=== PATIENT | male | born 1950 | race Caucasian/White ===

== ENCOUNTER 2016-11-02 14:54 | Inpatient (IN) | payer OTHER ==
[~2016-11-02] VITALS: Ht 182.9 cm; Wt 113.4 kg
[~2016-11-02 14:54] MED LIST: ASPIRIN325 M2 PO; DAILY MULTIPLE1 EACH PO; ELIQUIS5 M1 PO; FLOMAX0.4 M1 PO; METOPROLOL TART25 M1 PO; SIMVASTATIN40 M1 PO; VALSARTAN-HCTZ1 EAC3 PO; VICODIN 5-3001 EACH PO; VITAMIN B COMP1 EACH PO; VITAMIN B-121000 MC3 PO; VITAMIN D1000 UNIT PO
--- NOTE | 2016-11-02 15:00 | NUR ---
PT C/O FEVER SINCE MONDAY. STATES IT BROKE YESTERDAY, AND NOW IS 102.5. STATES SHIRT WAS SOAKED THROUGH WITH SWEAT. PT NOTED WITH SHAKING CHILLS. STATES HE FEELS TIRED AND FEELS TIGHTNESS WHEN HE BREATHS.
--- NOTE | 2016-11-02 15:14 | ED DYSPNEA/ASTHMA COMPLAINT ---
History of Present Illness General Chief Complaint: Fever Stated Complaint: FEVER/SOB Source: patient, family, old records Exam Limitations: no limitations Vital Signs & Intake/Output Vital Signs & Intake/Output Vital Signs Date Time Temp Pulse Resp B/P B/P Pulse O2 O2 Flow FiO2 Mean Ox Delivery Rate 11/03 2027 97.3 64 18 130/65 96 11/02 1812 100.4 11/02 1745 101.6 11/02 1718 75 18 137/64 96 11/02 1600 97 Room Air 11/02 1520 95 11/02 1458 102.5 100 20 152/85 94 Room Air Allergies Coded Allergies: lisinopril (COUGHING 11/12/15) Reconcile Medications Apixaban (Eliquis) 5 MG TABLET 1 TAB PO BID BLOOD THINNER (Reported) Cholecalciferol (Vitamin D3) (Vitamin D) 1,000 UNIT TABLET 1 TAB PO DAILY SUPPLEMENT (Reported) Cyanocobalamin (Vitamin B-12) 1,000 MCG TABLET 1 TAB PO DAILY SUPPLEMENT ( Reported) Metoprolol Tartrate 25 MG TABLET 0.5 TAB PO BID HBP (Reported) Multivitamin (Daily Multiple Vitamin) 1 EACH TABLET 1 TAB PO DAILY SUPPLEMENT (Reported) Simvastatin (Simvastatin*) 40 MG TABLET 1 TAB PO QPM CHOLESTEROL (Reported) Valsartan/Hydrochlorothiazide (Valsartan-Hctz 320-25 MG Tab) 1 EACH TABLET 1 TAB PO DAILY HIGH BLOOD PRESSURE (Reported) Vitamin B Complex 1 EACH CAPSULE 1 CAP PO DAILY SUPPLEMENT (Reported) Triage Note: PT C/O FEVER SINCE MONDAY. STATES IT BROKE YESTERDAY, AND NOW IS 102.5. STATES SHIRT WAS SOAKED THROUGH WITH SWEAT. PT NOTED WITH SHAKING CHILLS. STATES HE FEELS TIRED AND FEELS TIGHTNESS WHEN HE BREATHS. Triage Nurses Notes Reviewed? yes Onset: Abrupt Duration: day(s): (3), constant Timing: recent history Severity: moderate Prior Episodes/Possible Cause: no prior episodes Associated Symptoms: cough, fever HPI: 66-year-old male presents to ER for evaluation complaining of a 3 day history of progressively worsening fever shortness of breath diaphoresis. He states the fevers improved with Tylenol however come back he reports that today began to have a nonproductive cough. No sputum production or hemoptysis no doll pain nausea vomiting diarrhea. The patient has been camping in [place] and came home due to the symptoms. No sick contacts or recent antibiotic use. No nausea vomiting or diarrhea. No modifying factors or associated symptoms otherwise. The patient denies any chest pain palpitations dizziness lightheadedness. He does not smoke. The patient was admitted 1 year ago secondary to pericarditis. Symptoms are not worse with laying flat or sitting upright. No legSWELLING, no bodyaches, no recent tick bite (JASON RICHARDSON) Past History Travel History Traveled to [facility] past 21 day No Medical History Any Pertinent Medical History? see below for history Neurological: NONE EENT: NONE Cardiovascular: AFIB, hypertension, hyperlipidemia, PERICARDITIS Respiratory: NONE Gastrointestinal: NONE Hepatic: NONE Renal: NONE Musculoskeletal: NONE Psychiatric: NONE Endocrine: NONE Blood Disorders: NONE Cancer(s): NONE SALES ADMINISTRATION MANAGER/Reproductive: NONE History of MRSA: No History of VRE: No History of CDIFF: No Surgical History Surgical History: non-contributory Psychosocial History Who do you live with Spouse Services at Home None What is your primary language Turkmen Tobacco Use: Never used Family History Family History, If Any: Relation not specified for: *No pertinent family history Hx Contributory? No (JASON RICHARDSON) Review of Systems Review of Systems Constitutional: Reports: see HPI. Comments Review of systems: See HPI, All other systems negative. Constitutional, no chills no fever, no malaise HEENT: No visual changes no sore throat no congestion Cardiovascular: No chest pain , no palpitation Skin: no rashes, no change in skin Respiratory: No dyspnea no cough no sputum GI: No nausea no vomiting, no diarrhea, : No dysuria Muscle skeletal: No joint pain, no back pain, no neck pain, Neurologic: No numbness no headache Psych: No stress Heme/endocrine: No bruising Immunology: No lymphadenopathy (JASON RICHARDSON) Physical Exam Physical Exam General Appearance: well developed/nourished, alert, awake Respiratory: normal breath sounds, chest non-tender Comments: Well-developed well-nourished person in no acute distress HEENT: Normal EENT exam; PERRL, EOMI,HEAD is atraumatic. moist mucous membranes. Neck: Supple, no lymphadenopathy, normal range of motion without pain or tenderness Back: Nontender, no CVA tenderness. Full range of motion Cardiovascular: Regular rate and rhythms no murmurs rubs or gallops, normal JVP Respiratory: Chest nontender.There were no bony deformities, no asymmetry. No respiratory distress. Patient speaking in full complete sentences. Breath sounds clear to auscultation bilaterally: NO W/R/R Abdomen: Soft, nontender nondistended, no appreciable organomegaly. Normal bowel sounds. No rebound/guarding, No appreciable enlargement of the abdominal aorta, No ascites. Extremity: No edema, full range of motion of extremities, Neuro: Alert oriented x3, motor sensory normal, There were no obvious focal neurologic abnormalities. Skin: Diaphoretic No appreciable rash on exposed skin, skin is warm , no jaundice Psych: Mood and affect is normal, memory and judgment is normal. Core Measures ACS in differential dx? Yes Severe Sepsis Present: No Septic Shock Present: No Pneumonia Severity Index PSI Screen: PSI Screen: Response Value Temp < 95F or > 103.8F yes 15 Pulse > 124 yes 10 Total 25 Subtotal (Add Patient's Age): 89 (PATTIE GILL,JASON) Progress Differential Diagnosis: AMI, bronchitis, CHF, COPD, pneumonia, pneumothorax, unstable angina, TICK BORN ILLNESSS, CHOLELITHIASIS, CHOLECYSITIS, CHOLANGITIS, MALIGNANCY, PERICARDITISI, MYOCARDITIS Plan of Care: Orders Procedure Date/time Status Heart Healthy Diet 11/03 B Active CBC WITHOUT DIFFERENTIAL 11/03 599 Active BASIC ELECTROLYTES PLUS BUN&CR 11/03 599 Active TRC EVALUATION (GEN) 11/02 2009 Active Pathway - chart 11/02 2009 Active House Staff 11/02 2009 Active Patient Data 11/02 2009 Active Code Status 11/02 2009 Active Admit to inpatient 11/02 1948 Active Patient Data 11/02 1948 Active Code Status 11/02 1948 Complete Add-on Test (ER Only) 11/02 1917 Active LACTIC ACID 11/02 1805 Complete Intake & Output 11/02 1559 Active LYME TITRE 11/02 1514 Active Telemetry/Crepe Sole Wire Brusher 11/02 1505 Active BLOOD CULTURE 11/02 1505 Active TROPONIN LEVEL 11/02 1505 Complete PARTIAL THROMBOPLASTIN TIME 11/02 1505 Complete LACTIC ACID 11/02 1505 Complete COMPREHENSIVE METABOLIC PANEL 11/02 1505 Complete CBC WITHOUT DIFFERENTIAL 11/02 1505 Complete EKG 11/02 1505 Active VTE Mechanical Prophylaxis 11/02 UNK Active Activity/Ambulation 11/02 UNK Active Current Medications Sig/Luba Start time Last Medication Dose Stop Time Status Admin Ceftriaxone Sodium 1,000 MG DAILY 11/03 999 UNVr (Rocephin) Enoxaparin Sodium 40 MG DAILY 11/03 999 UNVr (Lovenox) Acetaminophen 650 MG Q6P PRN 11/02 2014 UNVr (Tylenol) Azithromycin 500 MG Q24H 11/02 2014 UNVr (Zithromax) Sodium Chloride 250 ML (Normal Saline 0.9%) Laboratory Tests 11/02/16 1814: Lactic Acid 0.8 11/02/16 1538: Anion Gap 13, Estimated GFR > 60, BUN/Creatinine Ratio 17.8, Glucose 190 H, Lactic Acid 2.1, Calcium 9.1, Total Bilirubin 1.5 H, AST 199 H, ALT 225 H, Alkaline Phosphatase 228 H, Troponin I 0.02, Total Protein 6.8, Albumin 3.9, Globulin 2.9, Albumin/Globulin Ratio 1.3, APTT 37, CBC w Diff NO MAN DIFF REQ, RBC 4.51 L, MCV 88.0, MCH 29.7, RDW 13.0, MPV 7.4, Gran % 85.3 H, Lymphocytes % 6.0 L, Monocytes % 8.6, Eosinophils % 0.1, Basophils % 0 L, Absolute Granulocytes 6.4, Absolute Lymphocytes 0.5 L, Absolute Monocytes 0.6, Absolute Eosinophils 0, Absolute Basophils 0, PUBS MCHC 33.7, Lyme Disease Antibody Pending Microbiology 11/02 1710 BLOOD: Blood Culture - RECD 11/02 1537 BLOOD: Blood Culture - RECD labs ordered, toradol 30mg iv, duoneb, cxr ordered case d/w dr ruiz who eval pt and agrees with plan pna severity index 93 points Risk Class IV, 8.2-9.3% mortality. Hospitalization recommended based on risk. 1830 repeat temp 99.0, repeat lactic is pending patient feeling improved however short of breath and spray patient however given x-ray lab work I believe premature discharge at the metacarpal which is in agreement with, Rocephin, azithromycin ordered call was placed to the patient's primary care physician CASE d/w dr francois will admit to [facility] (JASON RICHARDSON) Diagnostic Imaging: Viewed by Me: Radiology Read, CT Scan. Discussed w/RAD: Radiology Read, CT Scan. Radiology Impression: PATIENT: DORINDA HOWARD PRESENT AGE: 66 PATIENT ACCOUNT NO: [id number] : 48 LOCATION: ER ORDERING PHYSICIAN: JASON GILL SERVICE DATE: 11/02/16-160 EXAM TYPE: RAD - XRY-PORTABLE CHEST XRAY EXAMINATION: XR PORTABLE CHEST CLINICAL INFORMATION: Dyspnea. Fever. COMPARISON: 11/10/2015 TECHNIQUE: Portable frontal view of the chest was obtained. FINDINGS: The lungs are well expanded. There is a vague retrocardiac opacity. No edema or effusion. No pneumothorax. The cardiomediastinal silhouette is unchanged. No acute osseous abnormality. IMPRESSION: Retrocardiac opacity could represent atelectasis or pneumonia. DICTATED BY: CHUY CASTRO MD DATE/TIME DICTATED:11/02/161624 PATROL LADY:DANIELE DATE/TIME TRANSCRIBED:11/02/161624 CONFIDENTIAL, DO NOT COPY WITHOUT APPROPRIATE AUTHORIZATION. <Electronically signed in Other Vendor System> SIGNED BY: CHUY CASTRO MD 11/02/16 1630, PATIENT: DORINDA HOWARD PRESENT AGE: 66 PATIENT ACCOUNT NO : [id number] : 48 LOCATION: [facility] ORDERING PHYSICIAN: JASON GILL SERVICE DATE: 11/02/16 EXAM TYPE: CAT - CT ABD & PELVIS W IV CONTRAST EXAMINATION: CT ABDOMEN AND PELVIS WITH CONTRAST CLINICAL INFORMATION: Shortness of breath and fever. Evaluate for liver pathology. COMPARISON: 12/14/2015 TECHNIQUE: Multidetector volumetric imaging was performed of the abdomen and pelvis before and after the IV administration of 95 mL of Optiray 320 intravenous contrast. Sagittal and coronal reformatted images were obtained on the technologist's workstation. DLP: 856 mGy-cm. FINDINGS: LUNG BASES: Mild dependent atelectasis posteriorly. LIVER AND SPLEEN: Unremarkable. PANCREAS GALLBLADDER AND BILIARY TREE: Unremarkable. KIDNEYS, URETERS, AND ADRENALS: There is mild nonspecific perinephric stranding, otherwise unremarkable. URINARY BLADDER: Partially distended and unremarkable. GI TRACT: Stomach is collapsed, ligament of Treitz in its anatomic position. Small bowel loops nonobstructed. There are scattered diverticula most notably in the splenic flexure region of the left colon, otherwise unremarkable. Right colon is somewhat stool-filled, including the terminal ileum. Appendix is not definitively identified although no secondary signs of acute appendicitis are seen. PERITONEAL CAVITY: No intraperitoneal free air or free fluid. RETROPERITONEUM: No adenopathy. PELVIC ORGANS: Unremarkable. OSSEOUS STRUCTURES: Degenerative changes, no aggressive lesions. ANTERIOR ABDOMINAL WALL AND SOFT TISSUES: Intact, no underlying hernia. IMPRESSION: No acute intra-abdominal process. DICTATED BY: ELI ANDERSON MD DATE/TIME DICTATED:11/02/161704 PATROL LADY:DANIELE DATE/TIME TRANSCRIBED:11/02/161704 CONFIDENTIAL, DO NOT COPY WITHOUT APPROPRIATE AUTHORIZATION. <Electronically signed in Other Vendor System> SIGNED BY: ELI ANDERSON MD 11/02/16 1724 Initial ED EKG: normal intervals, normal p-waves, normal QRS complex, normal sinus rhythm (90), RBBB Rhythm Strip: normal sinus rhythm (JASON RICHARDSON) Departure Departure Time of Disposition: 1942 Disposition: STILL A PATIENT Condition: Stable Clinical Impression Primary Impression: Pneumonia Secondary Impressions: Elevated bilirubin, Transaminitis Referrals: Marisel MODI MD Departure Forms: Customer Survey General Discharge Information Admission Note Spoke With: NORMA FRANCOIS MD Documentation of Exam: Documentation of any treatments & extenuating circumstances including Concerns Regarding Discharge (functional status, medication knowledge or non-compliance, living conditions, etc.) that warrant an admission rather than observation: IV antibiotics trend labs turn cultures respiratory treatments when necessary premature discharge would BE medically harmful given high fevers elevatedLFTS which are new (JASON RICHARDSON) PA/DIESEL SERVICE TECHNICIAN Co-Sign Statement Statement: ED Attending supervision documentation- [x] I saw and evaluated the patient. I have also reviewed all the pertinent lab results and diagnostic results. I agree with the findings and the plan of care as documented in the PA's/DIESEL SERVICE TECHNICIAN's documentation. [] I have reviewed the ED Record and agree with the PA's/DIESEL SERVICE TECHNICIAN's documentation. [] Additions or exceptions (if any) to the PAs/DIESEL SERVICE TECHNICIAN's note and plan are summarized below: [] (TRAM RUIZ DO) Critical Care Note Critical Care Note Critical Care Time: non-applicable (JASON RICHARDSON)
--- NOTE | 2016-11-02 15:16 | NUR ---
PER JAIRO BLANKENSHIP PT IS NEW AND NEEDS BREATHING TX AND RT CALLED
--- NOTE | 2016-11-02 15:40 | NUR ---
LABS AND 1ST SET BC SENT
--- NOTE | 2016-11-02 15:50 | NUR ---
PT MEDICATED ORDERED
[2016-11-02 16:01] LABS: ABSOLUTE BASOPHIL COUNT 0 /CUMM (0.0-0.2); ABSOLUTE EOSINOPHIL COUNT 0 /CUMM (0.0-0.7); ABSOLUTE GRANULOCYTE CT 6.4 /CUMM (1.4-6.5); ABSOLUTE LYMPH COUNT 0.5 /CUMM (1.2-3.4); ABSOLUTE MONOCYTE COUNT 0.6 /CUMM (0.10-0.60); BASOPHIL % 0 % (0.0-2.0); EOSINOPHIL % 0.1 % (0-5); HEMATOCRIT 39.7 % (42-52); MEAN CORPUSCULAR HGB 29.7 PG (27.0-31.0); MEAN CORPUSCULAR HGB CONC 33.7 G/DL (33.0-37.0); MEAN PLATELET VOLUME 7.4 FL (7.4-10.4); PLATELET COUNT 172 /CUMM (130-400); RED BLOOD CELL CT 4.51 /CUMM (4.70-6.10); WHITE BLOOD CELL COUNT 7.5 /CUMM (4.8-10.8)
[2016-11-02 16:05] LABS: GRANULOCYTE % 85.3 % (42.2-75.2)
[2016-11-02 16:06] LABS: PTT 37 SEC (25-37)
--- NOTE | 2016-11-02 16:08 | NUR ---
CRITICAL TEST RESULTS [id number] DORINDA HOWARD 66 M TESTS AND RESULTS: LACTIC 2.1 Results received and read back by: JUAN C MOROCHO Results received date and time: 11/02/16 1608 The following provider was notified of the results, and read the results back: JAIRO BLANKENSHIP Notified date and time: 11/02/16 at 1607
--- NOTE | 2016-11-02 16:28 | NUR ---
PT COMPLETED FIRS LITER AND SECOND INFUSING AT PRESENT
--- NOTE | 2016-11-02 16:30 | RADIOLOGY REPORT ---
EXAMINATION: XR PORTABLE CHEST CLINICAL INFORMATION: Dyspnea. Fever. COMPARISON: 11/10/2015 TECHNIQUE: Portable frontal view of the chest was obtained. FINDINGS: The lungs are well expanded. There is a vague retrocardiac opacity. No edema or effusion. No pneumothorax. The cardiomediastinal silhouette is unchanged. No acute osseous abnormality. IMPRESSION: Retrocardiac opacity could represent atelectasis or pneumonia.
--- NOTE | 2016-11-02 16:54 | NUR ---
PT LEFT AND BACK FROM CAT SCAN
--- NOTE | 2016-11-02 17:21 | CT SCAN REPORT ---
EXAMINATION: CT ABDOMEN AND PELVIS WITH CONTRAST CLINICAL INFORMATION: Shortness of breath and fever. Evaluate for liver pathology. COMPARISON: 12/14/2015 TECHNIQUE: Multidetector volumetric imaging was performed of the abdomen and pelvis before and after the IV administration of 95 mL of Optiray 320 intravenous contrast. Sagittal and coronal reformatted images were obtained on the technologist's workstation. DLP: 856 mGy-cm. FINDINGS: LUNG BASES: Mild dependent atelectasis posteriorly. LIVER AND SPLEEN: Unremarkable. PANCREAS GALLBLADDER AND BILIARY TREE: Unremarkable. KIDNEYS, URETERS, AND ADRENALS: There is mild nonspecific perinephric stranding, otherwise unremarkable. URINARY BLADDER: Partially distended and unremarkable. GI TRACT: Stomach is collapsed, ligament of Treitz in its anatomic position. Small bowel loops nonobstructed. There are scattered diverticula most notably in the splenic flexure region of the left colon, otherwise unremarkable. Right colon is somewhat stool-filled, including the terminal ileum. Appendix is not definitively identified although no secondary signs of acute appendicitis are seen. PERITONEAL CAVITY: No intraperitoneal free air or free fluid. RETROPERITONEUM: No adenopathy. PELVIC ORGANS: Unremarkable. OSSEOUS STRUCTURES: Degenerative changes, no aggressive lesions. ANTERIOR ABDOMINAL WALL AND SOFT TISSUES: Intact, no underlying hernia. IMPRESSION: No acute intra-abdominal process.
--- NOTE | 2016-11-02 17:24 | NUR ---
PT COMPLETED 2ND BAG ABD THIRD INFUSING
--- NOTE | 2016-11-02 18:14 | NUR ---
4TH LITER INFUSING AT PRESENT
--- NOTE | 2016-11-02 18:15 | NUR ---
FEVER HAS REDUCED SLIGHTLY AND LACTIC BEEN REDRAWN
--- NOTE | 2016-11-02 18:45 | NUR ---
PT HAS IV ROCEPHIN INFUSIGN
--- NOTE | 2016-11-02 18:57 | NUR ---
PT HAS IV ZITHRO INFUSING AT PRESENT
--- NOTE | 2016-11-02 19:57 | History & Physical ---
MARY KWOK,[facility] 11/02/161955: General Information and HPI MD Statement: I have seen and personally examined DORINDA ROBLES and documented this H&P. The patient is a 66 year old M who presented with a patient stated chief complaint of [shortness of breath, fever, chills]. Source of Information: patient, family ( was present) Exam Limitations: no limitations History of Present Illness: Patient is a 66-year-old male with a past medical history of pericarditis one year ago, A. fib, hypertension, hyperlipidemia, and SYEDA who presents with a chief complaint of fevers, chills,chest congestion, non-productive cough, fatigue, and fever. The patient states he was in [place] since last Monday. On Monday the patient was setting up a tent when his noticed he was excessively sweaty afterwards. On Monday his notes that he had a fever of 102. He was then given 2 Tylenol. He also experienced tremors, headache, muscle aches on Monday. In addition, he began having symptoms of fevers, chills , sweats, sore throat, palpitations and epigastric pain which he states may be due to indigestion. He says the pain is a 2 out of 10 but now is a 0. His also notes that the patient is unable to take a deep breath and has been breathing faster than normal. The patient himself denies any shortness of breath. His recorded temperature 103 yesterday. She also recorded temperature 104.3 today. The patient denies nausea or vomiting, diarrhea, or dysuria. Of note the patient and his noted that they saw a tick on the ground about 2 weeks ago. They are unsure if the tick was attached to the patient or if the tick was on their dog. Patient denies any rashes. Allergies/Medications Allergies: Coded Allergies: lisinopril (COUGHING 11/12/15) Home Med list Apixaban (Eliquis) 5 MG TABLET 1 TAB PO BID BLOOD THINNER (Reported) Cholecalciferol (Vitamin D3) (Vitamin D) 1,000 UNIT TABLET 1 TAB PO DAILY SUPPLEMENT (Reported) Cyanocobalamin (Vitamin B-12) 1,000 MCG TABLET 1 TAB PO DAILY SUPPLEMENT ( Reported) Metoprolol Tartrate 25 MG TABLET 0.5 TAB PO BID HBP (Reported) Multivitamin (Daily Multiple Vitamin) 1 EACH TABLET 1 TAB PO DAILY SUPPLEMENT (Reported) Simvastatin (Simvastatin*) 40 MG TABLET 1 TAB PO QPM CHOLESTEROL (Reported) Valsartan/Hydrochlorothiazide (Valsartan-Hctz 320-25 MG Tab) 1 EACH TABLET 1 TAB PO DAILY HIGH BLOOD PRESSURE (Reported) Vitamin B Complex 1 EACH CAPSULE 1 CAP PO DAILY SUPPLEMENT (Reported) Past History Travel History Traveled to [place] past 21 day No Medical History Neurological: NONE EENT: NONE Cardiovascular: AFIB, CAD, hypertension, hyperlipidemia, PERICARDITIS Respiratory: SYEDA Gastrointestinal: NONE Hepatic: NONE Renal: NONE Musculoskeletal: NONE Psychiatric: NONE, depression Endocrine: NONE Blood Disorders: NONE Cancer(s): NONE CARPET LAYER HELPER/Reproductive: NONE History of MRSA: No History of VRE: No History of CDIFF: No Surgical History Surgical History: hemorroid, rectal prolapse Past Family/Social History Family History Relations & Conditions if any Relation not specified for: FH: cancer FH: diabetes mellitus FH: heart disease Psychosocial History Services at Home: None Smoking Status: Never Smoked ETOH Use: occasional use Functional Ability ADLs Independent: dressing, eating, toileting, bathing. Ambulation: independent IADLs Independent: shopping, housework, food prep, telephone, transportation, medication admin. Review of Systems Review of Systems Constitutional: Reports: chills, diaphoresis, fever. EENTM: Reports: throat pain. Cardiovascular: Reports: chest pain, palpitations. Respiratory: Reports: cough. Denies: short of breath. GI: Denies: no symptoms. Genitourinary: Denies: no symptoms. Musculoskeletal: Reports: muscle pain (diffuse myalgias). Skin: Denies: rash. Exam & Diagnostic Data Last 24 Hrs of Vital Signs/I&O Vital Signs Date Time Temp Pulse Resp B/P B/P Pulse O2 O2 Flow FiO2 Mean Ox Delivery Rate 11/03 0100 95 BIPAP 11/03 0058 108 152/100 11/03 0053 97.7 109 26 192/108 89 11/03 0043 108 152/100 11/02 2227 97.9 63 20 146/82 96 11/02 2206 Room Air 11/03 2027 97.3 64 18 130/65 96 11/02 1812 100.4 11/02 1745 101.6 11/02 1718 75 18 137/64 96 11/02 1600 97 Room Air 11/02 1520 95 11/02 1458 102.5 100 20 152/85 94 Room Air Intake & Output 11/03 0800 11/03 0000 11/02 1600 Intake Total 390 1000 Output Total Balance 390 1000 Intake, IV 150 1000 Intake, Oral 240 Patient 250 lb Weight Weight Reported by Patient Measurement Method Physical Exam General Appearance Alert, Oriented X3, Cooperative, No Acute Distress Skin No Rashes Skin Temp/Moisture Exam: Warm/Dry HEENT Atraumatic, PERRLA, EOMI Neck Supple Lymphatic no neck lymphadenopathy Cardiovascular Regular Rate, Normal S1, Normal S2 Lungs Clear to Auscultation, Normal Air Movement Abdomen Normal Bowel Sounds, Soft, No Tenderness, No Hepatospenomegaly Neurological Normal Speech, Strength at 5/5 X4 Ext, Normal Tone, Sensation Intact, patellar reflex 1+ b/l Extremities No Clubbing, No Cyanosis, No Edema Last 24 Hrs of Labs/Garret: Laboratory Tests 11/02/16 2315: Troponin I 0.03 11/02/16 1814: Lactic Acid 0.8 11/02/16 1538: Anion Gap 13, Estimated GFR > 60, BUN/Creatinine Ratio 17.8, Glucose 190 H, Lactic Acid 2.1, Calcium 9.1, Magnesium 1.9, Total Bilirubin 1.5 H, Direct Bilirubin 1.0 H, GGT 506 H, AST 199 H, ALT 225 H, Alkaline Phosphatase 228 H, Troponin I 0.02, Total Protein 6.8, Albumin 3.9, Globulin 2.9, Albumin/ Globulin Ratio 1.3, APTT 37, CBC w Diff NO MAN DIFF REQ, RBC 4.51 L, MCV 88.0, MCH 29.7, RDW 13.0, MPV 7.4, Gran % 85.3 H, Lymphocytes % 6.0 L, Monocytes % 8.6, Eosinophils % 0.1, Basophils % 0 L, Absolute Granulocytes 6.4, Absolute Lymphocytes 0.5 L, Absolute Monocytes 0.6, Absolute Eosinophils 0, Absolute Basophils 0, PUBS MCHC 33.7, Lyme Disease Antibody Pending Microbiology 11/02 171 BLOOD: Blood Culture - RECD 11/02 153 BLOOD: Blood Culture - RECD Diagnostic Data CXR Results FINDINGS: The lungs are well expanded. There is a vague retrocardiac opacity. No edema or effusion. No pneumothorax. The cardiomediastinal silhouette is unchanged. No acute osseous abnormality. IMPRESSION: Retrocardiac opacity could represent atelectasis or pneumonia. Other Results CT abd/pelvis FINDINGS: LUNG BASES: Mild dependent atelectasis posteriorly. LIVER AND SPLEEN: Unremarkable. PANCREAS GALLBLADDER AND BILIARY TREE: Unremarkable. KIDNEYS, URETERS, AND ADRENALS: There is mild nonspecific perinephric stranding, otherwise unremarkable. URINARY BLADDER: Partially distended and unremarkable. GI TRACT: Stomach is collapsed, ligament of Treitz in its anatomic position. Small bowel loops nonobstructed. There are scattered diverticula most notably in the splenic flexure region of the left colon, otherwise unremarkable. Right colon is somewhat stool-filled, including the terminal ileum. Appendix is not definitively identified although no secondary signs of acute appendicitis are seen. PERITONEAL CAVITY: No intraperitoneal free air or free fluid. RETROPERITONEUM: No adenopathy. PELVIC ORGANS: Unremarkable. OSSEOUS STRUCTURES: Degenerative changes, no aggressive lesions. ANTERIOR ABDOMINAL WALL AND SOFT TISSUES: Intact, no underlying hernia. IMPRESSION: No acute intra-abdominal process. Assessment/Plan Assessment: Patient is a 66-year-old male with a past medical history of pericarditis one year ago, A. fib, hypertension, hyperlipidemia, and SYEDA who presents with a chief complaint of fevers, chills,chest congestion, fatigue, and fever found to have a retrocardiac opacity could represent atelectasis or pneumonia and incidentally elevated transaminases and ALP. As Ranked By This Provider Problem List: 1. Shortness of breath Assessment/Plan Patient is a 66-year-old male with a past medical history of pericarditis one year ago, A. fib, hypertension, hyperlipidemia, and SYEDA who presents with a chief complaint of fevers, chills, fatigue, and fever. He also experienced tremors, headache, muscle aches, sore throat, palpitations and epigastric pain which he states may be due to indigestion. He says the pain is a 2 out of 10 but now is a 0. His also notes that the patient is unable to take a deep breath and has been breathing faster than normal. The patient himself denies any shortness of breath. The patient and his noted that they saw a tick on the ground about 2 weeks ago. They are unsure if the tick was attached to the patient or if the tick was on their dog. Patient denies any rashes. Chest x-ray revealed retrocardiac opacity which could represent atelectasis or pneumonia. We will begin treating him with ceftriaxone and azithromycin for presumed pneumonia. Although we are currently unsure of his origin of fever as he symptoms could also be caused by a virus or possibly lyme disease due to his exposure. We will need to also r/o ACS will serial trops and an ekg given his history of CAD and HLD. His intial trop was .02 and second was .03. Consider ID consult for FUO. -Continue ceftriaxone and azithromycin -Follow-up sputum culture, blood cultures, and Lyme titers -f/u cbc, bmp -f/u serial trops and ekg -continue home eqliquis 5mg po BID -consider ID consult for FUO if attending agrees 2. Transaminitis Assessment/Plan The patient was found to have an AST of 19, ALP 225, ALP 220, GG 506 and throat bilirubin of 1.5. His CT abdomen do not reveal any acute intrahepatic cause such as a gallstone or pancreatitis or active hepatitis. One possibility of the cause of this could be chronic cirrhosis although that was not shown on CT scan, or chronic viral infection of the liver. The morning team should consider getting a viral hepatitis panel. Of note the patient did have pericarditis one year ago. A possibility that could link the pericarditis and transaminitis is CMV. We will repeat the hepatic panel. An abd u/s was ordered to r/o any pathology. -f/u hepatic panel -consider hepatitis viral panel -f/u abd u/s. 3. HTN (hypertension) Assessment/Plan We will continue the patient's home medications. -Continue metoprolol 12.5 mg by mouth twice a day 4. Full code status Assessment/Plan Patient is full code Core Measures/Miscellaneous Acute Coronary Syndrome ACS Diagnosis: No Cerebrovascular Accident CVA/TIA Diagnosis: No Congestive Heart Failure CHF Diagnosis: No VTE (View Protocol) VTE Risk Factors: Acute medical illness, Age > 40 No [facility] VTE prophylaxis d/t: No contraindications No VTE Pharm Prophylaxis d/t: No contraindications VTE Diagnosis: No VTE Type: NONE VTE Confirmed by (Test): NONE Sepsis (View Protocol) Severe Sepsis Present: No Septic Shock Septic Shock Present: No Miscellaneous Documentation Attending Case Discussed With: NORMA TALLEY MD Primary Care Physician: NORMA TALLEY MD Patient sees these Specialists NA Level of Patient Care: General Medicine THAO KWOKBRITTANY 11/03/16 0126: Resident Review Statement Resident Statement: examined this patient, discussed with engineer internship, agreed with engineer internship Other Findings: Mr Robles is a 66-year-old gentleman with past medical history of a PMH of HTN , HLD, and pericarditis (diagnosed in 2016) who presented to the emergency department at [facility] on 11/02/2016 complaining of fever, rigors and shortness of breath. The patient was recently on holiday camping in [place] for the last week. His symptoms however began on Monday10/29/2016 where he began to experience fevers and chills. On Monday the patient was febrile up to 102.5. On Monday the patient was febrile up to 103. On the evening of Monday he was febrile to 104.3. Over the course of the week the patient has been using Tylenol intermittently and found that his fever was responsive to this. He also endorses decreased appetite, body tremors, some mild epigastric pain which he attributes to questionable gas pain this is subsequently resolved during the time of our encounter. Patient also reports that he may have been exposed to a tick approximately 2 weeks ago. States he is unsure whether he had any tick bites but did find a tick close to his scrotal area. At the time of admission the patient's Inés was present at bedside. His brother was also present. Primary care physician is Dr. Talley. R: +Shaking chills. Denies nausea, vomiting, diarrhea. Patient also endorsed a mild headache. HEENT: extraocular motion intact, no nystagmus. Pupils equally round and reactive to light and accommodation. Nose is atraumatic. External auditory canal and Tympanic membranes clear. Pharynx normal. No swelling or edema. Neck: Supple, no lymphadenopathy, normal range of motion without pain or tenderness Back: Nontender, no CVA tenderness. Cardiovascular: Regular rate and rhythm no murmurs rubs or gallops. Respiratory: Chest nontender. No respiratory distress. Breath sounds clear to auscultation bilaterally Abdomen: Soft, nontender nondistended, no appreciable organomegaly. Normal bowel sounds. No ascites, no rebound or guarding. Person Sign Negative Extremity: No edema, no calf tenderness to palpation, normal and equal pulses. Neuro: Alert oriented to person and place, confused about time and situation, motor sensory normal, cranial nerves II through XII grossly intact. Skin: No appreciable rash on exposed skin, skin is warm and dry. L: Labs at that time of admission was 7.5 WBC count, H&H 13.4 and 39.7 respectively, platelets 172. Sodium 134, Potassium 3.4, chloride 91, BUNs 16 creatinine 0.9. Total bilirubin 1.5. AST 199. ALT: 225. Alkaline phosphatase 238. GGT was elevated. I: SERVICE DATE: 11/02/16 EXAM TYPE: RAD - XRY-PORTABLE CHEST XRAYIMPRESSION: Retrocardiac opacity could represent atelectasis or pneumonia. EXAM TYPE: CAT - CT ABD & PELVIS W IV CONTRAST IMPRESSION: No acute intra-abdominal process. A/P: This is a relatively healthy 66-year-old gentleman with past medical history pericarditis was presented on 11/02/2016 with what appears to be a fever of unknown origin. We will currently admit the patient to the Gen. medical service and start the patient on empiric antibiotics for a presumed pneumonia. #Hypoxic respiratory failure. At the time of admission, patient was positive for sepsis criteria with a temperature of 102.5 and a pulse rate of 100. He subsequently become afebrile over the course of his time in the ED. Continue IVs azithromycin and ceftriaxone. May consider ID consultation in a.m. to rule out other causes of fever of unknown origin. Questionable lyme disease given exposure to ticks. Incentive spirometer #Transaminitis Likely multifactorial in origin. We will repeat LFTs in the a.m. We will also get an abdominal ultrasound to rule out any intra-hepatic pathology. CT of the abdomen done at the time of admission showed an unremarkable pancreas, gallbladder and biliary tree. #History of hypertension Continue the patient's home medications. #History of CAD We will rule out ACS with serial troponins and EKG. The first of troponins have been within normal limits. Will continue the patient on Eliquis. Patient follows up with the group of Dr. Barney and would request a consult if warranted. #Hyperlipidemia Patient does take a statin at home however this was held at the time of admission owing to transaminitis. May consider resuming once liver enzymes are within normal limits. #Code Full code
--- NOTE | 2016-11-02 20:28 | NUR ---
PT COMPLETED IV ZITHRO AND FEVDR IS REDUCED
--- NOTE | 2016-11-02 21:52 | NUR ---
BED ASSIGNMENT [id number]
[2016-11-02 22:27] VITALS: BP 146/82
[2016-11-03 00:53] VITALS: BP 192/108
[2016-11-03 00:58] VITALS: BP 152/100
--- NOTE | 2016-11-03 01:01 | NUR ---
NURSE NOTE: PT SHAKING, BLOOD SUGAR 98, BP 152/100, PLSE 108,TEMP 97.7. FABRICIO SOTO CAME TO BEDSIDE TO EVAL PATIENT. PT GIVEN METROPOLOL. PER BRITTANY LET PATIENT SLEEP . WILL ORDER MUSCLE RELAXANT IF HE NEEDS. WILL CONTINUE TO MONITOR PT.
--- NOTE | 2016-11-03 01:12 | NUR ---
NURSE NOTE: PT NOTED TO BE SLEEPING AT THIS TIME AN DNO LONGER SHAKING. WILL CONTINUE TO MONITOR.
--- NOTE | 2016-11-03 02:24 | NUR ---
NURSE NOTE: PT NOTED TO BE SLEEPING AND NO LONGER SHAKING.
[2016-11-03 05:27] LABS: ABSOLUTE BASOPHIL COUNT 0 /CUMM (0.0-0.2); ABSOLUTE EOSINOPHIL COUNT 0 /CUMM (0.0-0.7); ABSOLUTE GRANULOCYTE CT 5.3 /CUMM (1.4-6.5); ABSOLUTE LYMPH COUNT 0.4 /CUMM (1.2-3.4); ABSOLUTE MONOCYTE COUNT 0.5 /CUMM (0.10-0.60); BASOPHIL % 0 % (0.0-2.0); EOSINOPHIL % 0 % (0-5); GRANULOCYTE % 85.8 % (42.2-75.2); HEMATOCRIT 34.8 % (42-52); MEAN CORPUSCULAR HGB 29.3 PG (27.0-31.0); MEAN CORPUSCULAR HGB CONC 33.5 G/DL (33.0-37.0); MEAN CORPUSCULAR VOLUME 87.5 FL (80.0-94.0); MEAN PLATELET VOLUME 7.4 FL (7.4-10.4); PLATELET COUNT 147 /CUMM (130-400); RED BLOOD CELL CT 3.98 /CUMM (4.70-6.10); WHITE BLOOD CELL COUNT 6.1 /CUMM (4.8-10.8)
--- NOTE | 2016-11-03 06:22 | NUR ---
NURSE NOTE: BRITTANY MADE AWARE OF ELEVATED TROPONIN OF 0.11 WHICH IS BORDERLINE. PET [facility] MORNING TEAM WILL LOOK INTO IT. TEMP WAS ELEVATED 103.0. GIVEN TYLENOL AND WILL RECHECK TEMP.
[2016-11-03 06:41] VITALS: BP 150/90
--- NOTE | 2016-11-03 07:47 | PN- Housestaff ---
Subjective Follow-up For: Shortness of breath Subjective: I have personally seen and examined this patient today. Reports some fever and occasional cough. The patient syas hes tired and complains of generalized fatigue. Review of Systems Constitutional: Reports: see HPI. Objective Last 24 Hrs of Vital Signs/I&O Vital Signs Date Time Temp Pulse Resp B/P B/P Pulse O2 O2 Flow FiO2 Mean Ox Delivery Rate 11/03 1255 99.5 11/03 1150 99.0 11/03 1115 74 128/90 11/03 0715 100.1 11/03 0641 103.0 88 20 150/90 93 Nasal 2.0L Cannula 11/03 0640 100.7 11/03 0639 100.7 11/03 0538 103.0 11/03 0100 95 BIPAP 11/03 0058 108 152/100 07/ 0053 97.7 109 26 192/108 89 /06 0043 108 152/100 07/05 2227 97.9 63 20 146/82 96 07/05 2206 Room Air / 2028 97.3 64 18 130/65 96 07/05 1812 100.4 07/05 1745 101.6 07/05 1718 75 18 137/64 96 07/05 1600 97 Room Air 07/05 1520 95 07/05 1458 102.5 100 20 152/85 94 Room Air Intake & Output 11/03 1600 /06 0800 07/06 0000 Intake Total 720 390 Output Total Balance 720 390 Intake, IV 600 150 Intake, Oral 120 240 Patient 250 lb Weight Weight Reported by Patient Measurement Method Physical Exam General Appearance: Alert, Oriented X3, Cooperative Other Physical Findings: Skin No Rashes Skin Temp/Moisture Exam: Warm/Dry HEENT Atraumatic, PERRLA, EOMI Neck Supple Lymphatic no neck lymphadenopathy Cardiovascular Regular Rate, Normal S1, Normal S2 Lungs Clear to Auscultation, Normal Air Movement Abdomen Normal Bowel Sounds, Soft, No Tenderness, No Hepatospenomegaly Neurological Normal Speech, Strength at 5/5 X4 Ext, Normal Tone, Sensation Intact, patellar reflex 1+ b/l Extremities No Clubbing, No Cyanosis, No Edema Current Medications: Current Medications Sig/Luba Start time Last Medication Dose Route Stop Time Status Admin Acetaminophen 650 MG Q4P PRN 11/03 1230 AC PO Acetaminophen 650 MG Q6P PRN 11/02 2014 DC 11/03 PO 0538 Acetaminophen 0 .STK-MED ONE 11/02 1746 DC PO Acetaminophen 975 MG ONCE ONE 11/02 1730 DC 07 PO 11/02 1731 1745 Albuterol Sulfate 3 ML ONCE ONE 11/02 1515 DC 07 INH 11/02 1516 1520 Apixaban 5 MG BID 11/02 2200 AC 11/03 PO 1053 Azithromycin 500 MG DAILY@0 11/03 1900 AC Sodium Chloride 250 ML IV Azithromycin 500 MG Q24H 11/02 2014 DC 11/02 Sodium Chloride 250 ML IV 2100 Azithromycin 500 MG ONCE ONE 11/02 1830 DC 11/02 Sodium Chloride 250 ML IV 11/02 1929 1856 Ceftriaxone Sodium 1,000 MG DAILY@0 11/03 190 AC IV Ceftriaxone Sodium 0 .STK-MED ONE 11/02 1843 DC .ROUTE Ceftriaxone Sodium 1,000 MG ONCE ONE 11/02 1830 DC 11/02 IV 11/02 1831 1856 Enoxaparin Sodium 40 MG DAILY 11/03 1000 DC SC Ipratropium [place] 2.5 ML ONCE ONE 11/02 1515 DC 11/02 INH 11/02 1516 1520 Ketorolac 0 .STK-MED ONE 11/02 1601 DC Tromethamine .ROUTE Ketorolac 30 MG ONCE ONE 11/02 1515 DC 11/02 Tromethamine IV 11/02 1516 1556 Metoprolol Tartrate 12.5 MG BID 11/03 1100 AC 11/03 PO 1115 Metoprolol Tartrate 12.5 MG BID 11/02 2200 DC 11/03 PO 0043 Potassium Chloride 40 MEQ ONCE ONE 11/03 0815 DC 11/03 PO 11/03 0816 1201 Potassium Chloride 40 MEQ ONCE ONE 11/03 0715 DC 11/03 PO 11/03 0716 1055 Sodium Chloride 1,000 ML Q13H 11/02 2115 DC 07 IV 11/03 1014 1006 Sodium Chloride 1,000 ML BOLUS ONE 11/02 161 DC 07 IV 11/02 1714 1628 Sodium Chloride 1,000 ML BOLUS ONE 11/02 1615 DC 07 IV 11/02 1714 1727 Sodium Chloride 1,000 ML BOLUS ONE 11/02 1615 DC 07 IV 11/02 1714 1813 Sodium Chloride 1,000 ML BOLUS ONE 11/02 1515 DC 11/02 IV 11/02 1614 1556 Last 24 Hrs of Lab/Garret Results Last 24 Hrs of Labs/Mics: Laboratory Tests 11/03/16 1110: Troponin I 0.07 11/03/16 0510: Magnesium 2.0, Troponin I 0.11 *H, Triglycerides 116, Cholesterol 122, LDL Cholesterol, Calc 75, HDL Cholesterol 24 L, Cholesterol/HDL Ratio 5.1 H 11/03/16 0510: Anion Gap 9, Estimated GFR > 60, BUN/Creatinine Ratio 21.1, Total Bilirubin 1.8 H, Direct Bilirubin 1.4 H, AST 159 H, ALT 204 H, Alkaline Phosphatase 245 H, Total Protein 5.9 L, Albumin 3.2 L, CBC w Diff MAN DIFF ORDERED, RBC 3.98 L, MCV 87.5, MCH 29.3, RDW 13.0, MPV 7.4, Gran % 85.8 H, Lymphocytes % 6.1 L, Monocytes % 8.1, Eosinophils % 0, Basophils % 0 L, Absolute Granulocytes 5.3, Segmented Neutrophils 86 H, Band Neutrophils 6 H, Absolute Lymphocytes 0.4 L, Lymphocytes 7 L, Monocytes 1 L, Absolute Monocytes 0.5, Absolute Eosinophils 0 , Absolute Basophils 0, Platelet Estimate ADEQUATE, Polychromasia 1+, Ovalocytes FEW, PUBS MCHC 33.5, Fld Total RBCs Counted 100, Ehrlichia DNA (PCR) Pending 11/02/16 2315: Troponin I 0.03 11/02/16 1814: Lactic Acid 0.8 11/02/16 1538: Anion Gap 13, Estimated GFR > 60, BUN/Creatinine Ratio 17.8, Glucose 190 H, Lactic Acid 2.1, Calcium 9.1, Magnesium 1.9, Total Bilirubin 1.5 H, Direct Bilirubin 1.0 H, GGT 506 H, AST 199 H, ALT 225 H, Alkaline Phosphatase 228 H, Troponin I 0.02, Total Protein 6.8, Albumin 3.9, Globulin 2.9, Albumin/ Globulin Ratio 1.3, APTT 37, CBC w Diff NO MAN DIFF REQ, RBC 4.51 L, MCV 88.0, MCH 29.7, RDW 13.0, MPV 7.4, Gran % 85.3 H, Lymphocytes % 6.0 L, Monocytes % 8.6, Eosinophils % 0.1, Basophils % 0 L, Absolute Granulocytes 6.4, Absolute Lymphocytes 0.5 L, Absolute Monocytes 0.6, Absolute Eosinophils 0, Absolute Basophils 0, PUBS MCHC 33.7, Lyme Disease Antibody Pending Microbiology 11/03 100 URINE ROUT: Legionella Antigen - COLB 11/03 1001 URINE ROUT: Streptococcus pneumoniae Antigen (M - COLB 11/03 1001 URINE ROUT: Urine Culture - COLB 11/02 1710 BLOOD: Blood Culture - RES 11/02 1538 BLOOD: Blood Culture - RES Assessment/Plan Assessment: Patient is a 66-year-old male with a past medical history of pericarditis one year ago, A. fib, hypertension, hyperlipidemia, and SYEDA who presents with a chief complaint of fevers, chills,chest congestion, fatigue, and fever found to have a retrocardiac opacity could represent atelectasis or pneumonia and incidentally elevated transaminases and ALP. 1. Shortness of breath Chest x-ray revealed retrocardiac opacity which could represent atelectasis or pneumonia. We will begin treating him with ceftriaxone and azithromycin for presumed pneumonia. Although we are currently unsure of his origin of fever as he symptoms could also be caused by a virus or possibly lyme disease due to his exposure. We will need to also r/o ACS will serial trops and an ekg given his history of CAD and HLD. His intial trop was .02 and second was .03. -Consider ID consult for FUO. -Continue ceftriaxone and azithromycin -Follow-up sputum culture, blood cultures, and Lyme titers -f/u cbc, bmp -f/u serial trops and ekg -continue home eqliquis 5mg po BID -consider ID consult for FUO if attending agrees 2. Transaminitis The patient was found to have an AST of 19, ALP 225, ALP 220, GG 506 and throat bilirubin of 1.5. His CT abdomen do not reveal any acute intrahepatic cause such as a gallstone or pancreatitis or active hepatitis. -f/u hepatic panel -consider hepatitis viral panel -Abd u/s shows No significant sonographic findings within the examined abdomen. No evidence of cholelithiasis, cholecystitis or biliary tract obstruction. 3. HTN (hypertension) We will continue the patient's home medications. -Continue metoprolol 12.5 mg by mouth twice a day 4. Full code status Assessment/Plan Patient is full code Problem List: 1. Shortness of breath 2. ACS (acute coronary syndrome) 3. Transaminitis Pain Ratin Pain Location: None Pain Goal: Remain pain free Pain Plan: Pain Pathway. Tomorrow's Labs & Rationales: CBC,BEP
--- NOTE | 2016-11-03 09:23 | Admission Certification ---
Admission Certification Certification Statement - As attending physician, I certify that at the time of - admission, based on clinical presentation, severity of - symptoms, need for further diagnostic testing and - therapeutic interventions, and risk of adverse outcomes - without in-hospital treatment, in my clinical assessment, - this patient requires an acute hospital stay for a minimum - of two nights or longer. I have also considered psychsocial - factors such as support system, advanced age, financial - issues, cognitive issues, and failed out-patient treatments, - past re-admission history, safety of patient, and lack of - compliance as applicable. Specific rationale supporting this admission is: Pneumonia, fever and elevated LFTs
--- NOTE | 2016-11-03 09:47 | PN- Att Addend ---
Attending Addendum Attending Brief Note Patient complains of generalized fatigue and fever and he has minimal cough. He is not requiring any oxygen. He denies right upper quadrant pain. General Appearance: Alert, No Acute Distress Skin: Grossly normal HEENT: PEERLA Neck: Supple, No JVD Cardiovascular: Regular Rate, Normal S1, Normal S2, No Murmurs Lungs: Clear to Auscultation, Normal Air Movement Abdomen: Normal Bowel Sounds, Soft, No Tenderness Neurological: Normal Speech, Strength at 5/5 X4 Ext, Cranial Nerves 3-12 NL, Reflexes 2+ Extremities: No Clubbing, No Cyanosis, No Edema Vascular: Normal Pulses Assessment 66-year-old male with history of autism atrial fibrillation, hypertension, hyperlipidemia presenting with generalized symptoms of fever, malaise and fatigue apparently he was camping in [place] for last few days when he noticed the symptoms. Based on the history he did have upper respiratory symptoms and chest x-ray suggested retrocardiac infiltrate for which he was started on ceftriaxone and azithromycin for presumed pneumonia. He also had elevated LFTs with negative CAT scan abdomen. He has mild elevation of troponins without EKG changes and is currently in sinus rhythm. This is likely demand. Suspect patient may be having a tickborne illness rather than a pneumonia given persistent fever and abnormal LFTs. He is currently getting an ultrasound of his liver. We will repeat chest x-ray PA lateral view of to rule out pneumonia. And further plan pending above tests. Plan Chest x-ray PA lateral view Continue antibiotic pending xray findings Follow liver USD ID consult cardiology evaluation repeat trops trend liver enzymes Continue other home medications DVT prophylaxis Current Medications Sig/Luba Start time Last Medication Dose Route Stop Time Status Admin Acetaminophen 650 MG Q6P PRN 11/02 2014 11/03 PO 0538 Acetaminophen 0 .STK-MED ONE 11/02 1746 DC PO Acetaminophen 975 MG ONCE ONE 11/02 1730 DC 11/02 PO 11/02 1731 1745 Albuterol Sulfate 3 ML ONCE ONE 11/02 1515 DC 11/02 INH 11/02 1516 1520 Apixaban 5 MG BID 11/02 2200 11/03 PO 0041 Azithromycin 500 MG DAILY@1900 11/03 1900 AC Sodium Chloride 250 ML IV Azithromycin 500 MG Q24H 11/02 2014 UT 11/02 Sodium Chloride 250 ML IV 2100 Azithromycin 500 MG ONCE ONE 11/02 1830 DC 11/02 Sodium Chloride 250 ML IV 11/02 1929 1856 Ceftriaxone Sodium 1,000 MG DAILY@1900 11/03 1900 AC IV Ceftriaxone Sodium 0 .STK-MED ONE 11/02 1843 DC .ROUTE Ceftriaxone Sodium 1,000 MG ONCE ONE 11/02 1830 DC 07 IV 11/02 1831 1856 Enoxaparin Sodium 40 MG DAILY 11/03 1000 DC SC Ipratropium [place] 2.5 ML ONCE ONE 11/02 1515 DC 07 INH 11/02 1516 1520 Ketorolac 0 .STK-MED ONE 11/02 1601 DC Tromethamine .ROUTE Ketorolac 30 MG ONCE ONE 11/02 1515 DC 11/02 Tromethamine IV 11/02 1516 1556 Metoprolol Tartrate 12.5 MG BID 11/02 2200 AC 11/03 PO 0043 Potassium Chloride 40 MEQ ONCE ONE 11/03 0815 DC PO 11/03 0816 Potassium Chloride 40 MEQ ONCE ONE 11/03 0715 DC PO 11/03 0716 Sodium Chloride 1,000 ML Q13H 11/02 2115 AC / IV 11/03 1014 2128 Sodium Chloride 1,000 ML BOLUS ONE 11/02 161 DC 07/ IV 07 1714 1628 Sodium Chloride 1,000 ML BOLUS ONE 11/02 1615 DC 07/ IV / 1714 1727 Sodium Chloride 1,000 ML BOLUS ONE 11/02 1615 DC 07/ IV / 1714 1813 Sodium Chloride 1,000 ML BOLUS ONE 11/02 1515 DC 07/ IV 07/ 1614 1556 Laboratory Tests 11/03 11/03 07/09 04/ 0510 0510 2315 1814 Chemistry Sodium (137 - 145 mmol/L) 137 Potassium (3.5 - 5.1 mmol/L) 3.4 L Chloride (98 - 107 mmol/L) 101 Carbon Dioxide (22 - 30 mmol/L) 27 Anion Gap (5 - 16) 9 BUN (9 - 20 mg/dL) 19 Creatinine (0.7 - 1.2 mg/dL) 0.9 Estimated GFR (>60 ml/min) > 60 BUN/Creatinine Ratio (7 - 25 %) 21.1 Lactic Acid (0.7 - 2.1 mmol/L) 0.8 Magnesium (1.6 - 2.3 mg/dL) 2.0 Total Bilirubin (0.2 - 1.3 mg/dL) 1.8 H Direct Bilirubin (< 0.4 mg/dL) 1.4 H AST (17 - 59 U/L) 159 H ALT (21 - 72 U/L) 204 H Alkaline Phosphatase (< 127 U/L) 245 H Troponin I (<0.11 ng/ml) 0.11 *H 0.03 Total Protein (6.3 - 8.2 g/dL) 5.9 L Albumin (3.5 - 5.0 g/dL) 3.2 L Triglycerides (<150 mg/dL) 116 Cholesterol (< 200 MG/DL) 122 LDL Cholesterol, Calc (65 - 129 mg/dL) 75 HDL Cholesterol (40 - 60 mg/dL) 24 L Cholesterol/HDL Ratio (0.00 - 4.88 %) 5.1 H Hematology CBC w Diff MAN DIFF ORDERED WBC (4.8 - 10.8 /CUMM) 6.1 RBC (4.70 - 6.10 /CUMM) 3.98 L Hgb (14.0 - 18.0 G/DL) 11.6 L Hct (42 - 52 %) 34.8 L MCV (80.0 - 94.0 FL) 87.5 MCH (27.0 - 31.0 PG) 29.3 RDW (11.5 - 14.5 %) 13.0 Plt Count (130 - 400 /CUMM) 147 MPV (7.4 - 10.4 FL) 7.4 Gran % (42.2 - 75.2 %) 85.8 H Lymphocytes % (20.5 - 51.1 %) 6.1 L Monocytes % (1.7 - 9.3 %) 8.1 Eosinophils % (0 - 5 %) 0 Basophils % (0.0 - 2.0 %) 0 L Absolute Granulocytes (1.4 - 6.5 /CUMM) 5.3 Segmented Neutrophils (42.2 - 75.2 %) 86 H Band Neutrophils (0.0 - 5.0 %) 6 H Absolute Lymphocytes (1.2 - 3.4 /CUMM) 0.4 L Lymphocytes (20.5 - 51.1 %) 7 L Monocytes (1.7 - 9.3 %) 1 L Absolute Monocytes (0.10 - 0.60 /CUMM) 0.5 Absolute Eosinophils (0.0 - 0.7 /CUMM) 0 Absolute Basophils (0.0 - 0.2 /CUMM) 0 Platelet Estimate (ADEQUATE) ADEQUATE Polychromasia 1+ Ovalocytes FEW PUBS MCHC (33.0 - 37.0 G/DL) 33.5 Other Body Source Fld Total RBCs Counted (%) 100 07/05 1538 Chemistry Sodium (137 - 145 mmol/L) 134 L Potassium (3.5 - 5.1 mmol/L) 3.4 L Chloride (98 - 107 mmol/L) 91 L Carbon Dioxide (22 - 30 mmol/L) 29 Anion Gap (5 - 16) 13 BUN (9 - 20 mg/dL) 16 Creatinine (0.7 - 1.2 mg/dL) 0.9 Estimated GFR (>60 ml/min) > 60 BUN/Creatinine Ratio (7 - 25 %) 17.8 Glucose (65 - 99 mg/dL) 190 H Lactic Acid (0.7 - 2.1 mmol/L) 2.1 Calcium (8.4 - 10.2 mg/dL) 9.1 Magnesium (1.6 - 2.3 mg/dL) 1.9 Total Bilirubin (0.2 - 1.3 mg/dL) 1.5 H Direct Bilirubin (< 0.4 mg/dL) 1.0 H GGT (15 - 73 U/L) 506 H AST (17 - 59 U/L) 199 H ALT (21 - 72 U/L) 225 H Alkaline Phosphatase (< 127 U/L) 228 H Troponin I (<0.11 ng/ml) 0.02 Total Protein (6.3 - 8.2 g/dL) 6.8 Albumin (3.5 - 5.0 g/dL) 3.9 Globulin (1.9 - 4.2 gm/dL) 2.9 Albumin/Globulin Ratio (1.1 - 2.2 %) 1.3 Coagulation APTT (25 - 37 SEC) 37 Hematology CBC w Diff NO MAN DIFF REQ WBC (4.8 - 10.8 /CUMM) 7.5 RBC (4.70 - 6.10 /CUMM) 4.51 L Hgb (14.0 - 18.0 G/DL) 13.4 L Hct (42 - 52 %) 39.7 L MCV (80.0 - 94.0 FL) 88.0 MCH (27.0 - 31.0 PG) 29.7 RDW (11.5 - 14.5 %) 13.0 Plt Count (130 - 400 /CUMM) 172 MPV (7.4 - 10.4 FL) 7.4 Gran % (42.2 - 75.2 %) 85.3 H Lymphocytes % (20.5 - 51.1 %) 6.0 L Monocytes % (1.7 - 9.3 %) 8.6 Eosinophils % (0 - 5 %) 0.1 Basophils % (0.0 - 2.0 %) 0 L Absolute Granulocytes (1.4 - 6.5 /CUMM) 6.4 Absolute Lymphocytes (1.2 - 3.4 /CUMM) 0.5 L Absolute Monocytes (0.10 - 0.60 /CUMM) 0.6 Absolute Eosinophils (0.0 - 0.7 /CUMM) 0 Absolute Basophils (0.0 - 0.2 /CUMM) 0 PUBS MCHC (33.0 - 37.0 G/DL) 33.7 Serology Lyme Disease Antibody Pending Vital Signs Date Time Temp Pulse Resp B/P B/P Pulse O2 O2 Flow FiO2 Mean Ox Delivery Rate 07/06 0715 100.1 07/06 0641 103.0 88 20 150/90 93 Nasal 2.0L Cannula 07/06 0640 100.7 07/06 0639 100.7 07/06 0538 103.0 07/06 0100 95 BIPAP 07/06 0058 108 152/100 07/06 0053 97.7 109 26 192/108 89 07/06 0043 108 152/100 07/05 2227 97.9 63 20 146/82 96 07/05 2206 Room Air 07/05 2028 97.3 64 18 130/65 96 07/05 1812 100.4 07/05 1745 101.6 07/05 1718 75 18 137/64 96 07/05 1600 97 Room Air 07/05 1520 95 07/05 1458 102.5 100 20 152/85 94 Room Air
--- NOTE | 2016-11-03 10:41 | Cons- Cardiology ---
General Information and HPI Consulting Request Date of Consult: 11/03/16 Requested By: NORMA MANCIA MD Reason for Consult: Positive troponin Source of Information: patient, old records Exam Limitations: no limitations History of Present Illness: Patient is a 66-year-old male with a past medical history of pericarditis one year ago, A. fib, hypertension, hyperlipidemia, and SYEDA who presents with a chief complaint of fevers, chills,chest congestion, non-productive cough, fatigue, and fever. The patient states he was in [place] since last Monday. On Monday the patient was setting up a tent when his noticed he was excessively sweaty afterwards. On Monday his notes that he had a fever of 102. He was then given 2 Tylenol. He also experienced tremors, headache, muscle aches on Monday. In addition, he began having symptoms of fevers, chills , sweats, sore throat, palpitations and epigastric pain which he states may be due to indigestion. He says the pain is a 2 out of 10 but now is a 0. His also notes that the patient is unable to take a deep breath and has been breathing faster than normal. The patient himself denies any shortness of breath. His recorded temperature 103 yesterday. She also recorded temperature 104.3 today. The patient denies nausea or vomiting, diarrhea, or dysuria. Of note the patient and his noted that they saw a tick on the ground about 2 weeks ago. They are unsure if the tick was attached to the patient or if the tick was on their dog. Patient denies any rashes. The above information was obtained by the admitting resident. The patient clearly admits to me similar symptoms of weakness and fever chills weakness. He claims to be normal about a week ago and in his usual activity walking the dog didn't get the yard he has had no chest pains or unusual shortness of breath. Reportedly he was admitted with some chest discomfort last year to [facility] and had a nuclear stress test and echocardiogram that was essentially unremarkable. He was noted to have atrial fibrillation and therefore carries a diagnosis of paroxysmal atrial fibrillation for which she is on anticoagulant namely Elliquis. He also has hypertension dyslipidemia and a pre-existing right bundle branch block. Allergies/Medications Allergies: Coded Allergies: lisinopril (COUGHING 11/12/15) Home Med List: Apixaban (Eliquis) 5 MG TABLET 1 TAB PO BID BLOOD THINNER (Reported) Cholecalciferol (Vitamin D3) (Vitamin D) 1,000 UNIT TABLET 1 TAB PO DAILY SUPPLEMENT (Reported) Cyanocobalamin (Vitamin B-12) 1,000 MCG TABLET 1 TAB PO DAILY SUPPLEMENT ( Reported) Metoprolol Tartrate 25 MG TABLET 0.5 TAB PO BID HBP (Reported) Multivitamin (Daily Multiple Vitamin) 1 EACH TABLET 1 TAB PO DAILY SUPPLEMENT (Reported) Simvastatin (Simvastatin*) 40 MG TABLET 1 TAB PO QPM CHOLESTEROL (Reported) Valsartan/Hydrochlorothiazide (Valsartan-Hctz 320-25 MG Tab) 1 EACH TABLET 1 TAB PO DAILY HIGH BLOOD PRESSURE (Reported) Vitamin B Complex 1 EACH CAPSULE 1 CAP PO DAILY SUPPLEMENT (Reported) Current Medications: Current Medications Sig/Luba Start time Last Medication Dose Route Stop Time Status Admin Acetaminophen 650 MG Q6P PRN 11/02 2014 AC 11/03 PO 0538 Acetaminophen 0 .STK-MED ONE 11/02 174 DC PO Acetaminophen 975 MG ONCE ONE 11/02 173 DC 11/02 PO 11/02 173 1745 Albuterol Sulfate 3 ML ONCE ONE 11/02 1515 DC 11/02 INH 11/02 1516 1520 Apixaban 5 MG BID 11/02 2199 AC 11/03 PO 0041 Azithromycin 500 MG DAILY@11/03 1900 AC Sodium Chloride 250 ML IV Azithromycin 500 MG Q24H 11/02 2014 DC 11/02 Sodium Chloride 250 ML IV 2100 Azithromycin 500 MG ONCE ONE 11/02 183 DC 11/02 Sodium Chloride 250 ML IV 11/02 1929 1856 Ceftriaxone Sodium 1,000 MG DAILY@11/03 1900 AC IV Ceftriaxone Sodium 0 .STK-MED ONE 11/02 1843 DC .ROUTE Ceftriaxone Sodium 1,000 MG ONCE ONE 11/02 1830 DC 11/02 IV 11/02 1831 1856 Enoxaparin Sodium 40 MG DAILY 11/03 1000 DC SC Ipratropium [place] 2.5 ML ONCE ONE 11/02 1515 DC 11/02 INH 11/02 1516 1520 Ketorolac 0 .STK-MED ONE 11/02 1601 DC Tromethamine .ROUTE Ketorolac 30 MG ONCE ONE 11/02 1515 DC 07/ Tromethamine IV 07/ 1516 1556 Metoprolol Tartrate 12.5 MG BID 11/02 2200 AC 11/03 PO 0043 Potassium Chloride 40 MEQ ONCE ONE 11/03 0815 DC PO 11/03 0816 Potassium Chloride 40 MEQ ONCE ONE 11/03 0715 DC PO / 0716 Sodium Chloride 1,000 ML Q13H / 2115 DC 07/06 IV / 1014 1006 Sodium Chloride 1,000 ML BOLUS ONE / 1615 DC 07/05 IV 07/05 1714 1628 Sodium Chloride 1,000 ML BOLUS ONE /05 1615 DC 07/05 IV 07/05 1714 1727 Sodium Chloride 1,000 ML BOLUS ONE / 1615 DC 07/05 IV 07/ 1714 1813 Sodium Chloride 1,000 ML BOLUS ONE / 1515 DC 07/05 IV 07/05 1614 1556 Review of Systems Review of Systems Constitutional: Reports: see HPI. EENTM: Denies: no symptoms. Cardiovascular: Denies: no symptoms. Respiratory: Reports: see HPI. GI: Reports: see HPI. Genitourinary: Denies: no symptoms. Musculoskeletal: Reports: muscle pain. Skin: Denies: no symptoms. Neurological/Psychological: Denies: no symptoms. Hematologic/Endocrine: Denies: no symptoms. Immunologic/Allergic: Denies: no symptoms. Past History Travel History Traveled to [place] past 21 day No Medical History Neurological: NONE EENT: NONE Cardiovascular: AFIB, CAD, hypertension, hyperlipidemia, PERICARDITIS Respiratory: SYEDA Gastrointestinal: NONE Hepatic: NONE Renal: NONE Musculoskeletal: NONE Psychiatric: NONE, depression Endocrine: NONE Blood Disorders: NONE Cancer(s): NONE PROOF INSPECTOR/Reproductive: NONE Surgical History Surgical History: hemorroid rectal prolapse Family History Relations & Conditions If Any: Relation not specified for: FH: cancer FH: diabetes mellitus FH: heart disease Psychosocial History Services at Home: None Smoking Status: Never Smoked ETOH Use: occasional use Functional Ability ADLs Independent: dressing, eating, toileting, bathing. Ambulation: independent IADLs Independent: shopping, housework, food prep, telephone, transportation, medication admin. ECHO Results (as available) Date of last Echo 11/11/15 EF% 60 Report: Normal left ventricle systolic function with impaired left ventricular relaxation, mild left ventricle hypertrophy. No significant valvular abnormalities Exam & Diagnostic Data Vital Signs and I&O Vital Signs Date Time Temp Pulse Resp B/P B/P Pulse O2 O2 Flow FiO2 Mean Ox Delivery Rate 11/03 0715 100.1 11/03 0641 103.0 88 20 150/90 93 Nasal 2.0L Cannula 11/03 0640 100.7 11/03 0639 100.7 / 0538 103.0 / 0100 95 BIPAP 11/03 0058 108 152/100 11/03 0053 97.7 109 26 192/108 89 /06 0043 108 152/100 11/02 2227 97.9 63 20 146/82 96 11/02 2206 Room Air 11/02 2028 97.3 64 18 130/65 96 11/02 1812 100.4 11/02 1745 101.6 11/02 1718 75 18 137/64 96 / 1600 97 Room Air 11/02 1520 95 /05 1458 102.5 100 20 152/85 94 Room Air Intake & Output 11/03 0811/03 0000 11/02 1600 11/02 0800 11/02 0000 Intake Total 902 867 3557 Output Total Balance 590 689 8417 Intake, IV 839 907 1964 Intake, Oral 120 240 Patient 250 lb Weight Weight Reported by Patient Measurement Method Physical Exam: Gen. exam the patient appeared comfortable. He was being wheeled down to radiology for chest x-ray. Head normocephalic atraumatic Eyes sclera anicteric conjunctiva showed no pallor extraocular muscles were normal Neck no jugular venous distention no thyroid masses no palpable nodes [place] chest lungs were clear bilaterally Heart regular rhythm with a 1/6 systolic murmur Abdomen soft protuberant bowel sounds normal no organomegaly Extremities no clubbing cyanosis or pedal edema Neurological no gross motor or sensory deficits Labs/Garret Results: Laboratory Tests 11/03 11/03 11/02 11/02 0510 0510 2315 1814 Chemistry Sodium (137 - 145 mmol/L) 137 Potassium (3.5 - 5.1 mmol/L) 3.4 L Chloride (98 - 107 mmol/L) 101 Carbon Dioxide (22 - 30 mmol/L) 27 Anion Gap (5 - 16) 9 BUN (9 - 20 mg/dL) 19 Creatinine (0.7 - 1.2 mg/dL) 0.9 Estimated GFR (>60 ml/min) > 60 BUN/Creatinine Ratio (7 - 25 %) 21.1 Lactic Acid (0.7 - 2.1 mmol/L) 0.8 Magnesium (1.6 - 2.3 mg/dL) 2.0 Total Bilirubin (0.2 - 1.3 mg/dL) 1.8 H Direct Bilirubin (< 0.4 mg/dL) 1.4 H AST (17 - 59 U/L) 159 H ALT (21 - 72 U/L) 204 H Alkaline Phosphatase (< 127 U/L) 245 H Troponin I (<0.11 ng/ml) 0.11 *H 0.03 Total Protein (6.3 - 8.2 g/dL) 5.9 L Albumin (3.5 - 5.0 g/dL) 3.2 L Triglycerides (<150 mg/dL) 116 Cholesterol (< 200 MG/DL) 122 LDL Cholesterol, Calc (65 - 129 mg/dL) 75 HDL Cholesterol (40 - 60 mg/dL) 24 L Cholesterol/HDL Ratio (0.00 - 4.88 %) 5.1 H Hematology CBC w Diff MAN DIFF ORDERED WBC (4.8 - 10.8 /CUMM) 6.1 RBC (4.70 - 6.10 /CUMM) 3.98 L Hgb (14.0 - 18.0 G/DL) 11.6 L Hct (42 - 52 %) 34.8 L MCV (80.0 - 94.0 FL) 87.5 MCH (27.0 - 31.0 PG) 29.3 RDW (11.5 - 14.5 %) 13.0 Plt Count (130 - 400 /CUMM) 147 MPV (7.4 - 10.4 FL) 7.4 Gran % (42.2 - 75.2 %) 85.8 H Lymphocytes % (20.5 - 51.1 %) 6.1 L Monocytes % (1.7 - 9.3 %) 8.1 Eosinophils % (0 - 5 %) 0 Basophils % (0.0 - 2.0 %) 0 L Absolute Granulocytes (1.4 - 6.5 /CUMM) 5.3 Segmented Neutrophils (42.2 - 75.2 %) 86 H Band Neutrophils (0.0 - 5.0 %) 6 H Absolute Lymphocytes (1.2 - 3.4 /CUMM) 0.4 L Lymphocytes (20.5 - 51.1 %) 7 L Monocytes (1.7 - 9.3 %) 1 L Absolute Monocytes (0.10 - 0.60 /CUMM) 0.5 Absolute Eosinophils (0.0 - 0.7 /CUMM) 0 Absolute Basophils (0.0 - 0.2 /CUMM) 0 Platelet Estimate (ADEQUATE) ADEQUATE Polychromasia 1+ Ovalocytes FEW PUBS MCHC (33.0 - 37.0 G/DL) 33.5 Other Body Source Fld Total RBCs Counted (%) 100 Serology Ehrlichia DNA (PCR) Pending 11/02 1538 Chemistry Sodium (137 - 145 mmol/L) 134 L Potassium (3.5 - 5.1 mmol/L) 3.4 L Chloride (98 - 107 mmol/L) 91 L Carbon Dioxide (22 - 30 mmol/L) 29 Anion Gap (5 - 16) 13 BUN (9 - 20 mg/dL) 16 Creatinine (0.7 - 1.2 mg/dL) 0.9 Estimated GFR (>60 ml/min) > 60 BUN/Creatinine Ratio (7 - 25 %) 17.8 Glucose (65 - 99 mg/dL) 190 H Lactic Acid (0.7 - 2.1 mmol/L) 2.1 Calcium (8.4 - 10.2 mg/dL) 9.1 Magnesium (1.6 - 2.3 mg/dL) 1.9 Total Bilirubin (0.2 - 1.3 mg/dL) 1.5 H Direct Bilirubin (< 0.4 mg/dL) 1.0 H GGT (15 - 73 U/L) 506 H AST (17 - 59 U/L) 199 H ALT (21 - 72 U/L) 225 H Alkaline Phosphatase (< 127 U/L) 228 H Troponin I (<0.11 ng/ml) 0.02 Total Protein (6.3 - 8.2 g/dL) 6.8 Albumin (3.5 - 5.0 g/dL) 3.9 Globulin (1.9 - 4.2 gm/dL) 2.9 Albumin/Globulin Ratio (1.1 - 2.2 %) 1.3 Coagulation APTT (25 - 37 SEC) 37 Hematology CBC w Diff NO MAN DIFF REQ WBC (4.8 - 10.8 /CUMM) 7.5 RBC (4.70 - 6.10 /CUMM) 4.51 L Hgb (14.0 - 18.0 G/DL) 13.4 L Hct (42 - 52 %) 39.7 L MCV (80.0 - 94.0 FL) 88.0 MCH (27.0 - 31.0 PG) 29.7 RDW (11.5 - 14.5 %) 13.0 Plt Count (130 - 400 /CUMM) 172 MPV (7.4 - 10.4 FL) 7.4 Gran % (42.2 - 75.2 %) 85.3 H Lymphocytes % (20.5 - 51.1 %) 6.0 L Monocytes % (1.7 - 9.3 %) 8.6 Eosinophils % (0 - 5 %) 0.1 Basophils % (0.0 - 2.0 %) 0 L Absolute Granulocytes (1.4 - 6.5 /CUMM) 6.4 Absolute Lymphocytes (1.2 - 3.4 /CUMM) 0.5 L Absolute Monocytes (0.10 - 0.60 /CUMM) 0.6 Absolute Eosinophils (0.0 - 0.7 /CUMM) 0 Absolute Basophils (0.0 - 0.2 /CUMM) 0 PUBS MCHC (33.0 - 37.0 G/DL) 33.7 Serology Lyme Disease Antibody Pending Diagnostic Data EKG Results Sinus rhythm and right bundle branch block no significant change from before CXR Results Retrocardiac opacity could represent atelectasis or pneumonia. Assessment/Plan Assessment/Plan In summary this 66-year-old gentleman was admitted with the following problems #1. Fever chills fatigue body shaking consistent with infectious etiology. #2. Elevated liver function tests #3. History of paroxysmal atrial fibrillation currently in sinus rhythm and on appropriate anticoagulation #4. Mild elevation of troponin. His presenting picture appears more infectious , he doesn't show any new changes on his electrocardiogram, he is had a nuclear stress test 2016 that was negative for ischemia and his recent functional activity as been normal and usual. I suspect troponin elevation is related to supply demand mismatch. However I would transfer him to telemetry and get further troponins and check an echocardiogram. #5. Sleep apnea #6. Dyslipidemia #7. Possible pneumonia by chest x-ray There is a high probability that his fever and infectious symptoms might be related to her rickettsial disease particularly with elevation of liver function tests. However will defer to primary care and infectious disease in this regard. Echocardiogram should be performed. Consult Acknowledgment - Thank you for your consult request.
--- NOTE | 2016-11-03 10:45 | ULTRASOUND REPORT ---
EXAMINATION: US ABDOMEN COMPLETE CLINICAL INFORMATION: 66-year-old male with elevated liver enzymes.. COMPARISON: CT images of the abdomen and pelvis from 11/02/2016 TECHNIQUE: Real-time imaging of the abdominal viscera. FINDINGS: PANCREAS: Normal. ABDOMINAL AORTA: The proximal segment is normal in caliber. INFERIOR VENA CAVA: Visualized portions are normal. LIVER: Sonographically normal. The liver demonstrates normal size, contour and echogenicity. No focal lesion or intrahepatic biliary duct dilatation. GALLBLADDER: Gallbladder is slightly underdistended; its wall is 0.3 cm thick. No evidence of gallbladder or sludge, polyp, cholelithiasis or pericholecystic fluid. COMMON BILE DUCT: Normal in caliber measuring 0.4 cm in diameter. RIGHT KIDNEY: Normal. No hydronephrosis. No renal calculi or focal parenchymal lesions. The kidney measures 13.9 cm in maximum dimension. LEFT KIDNEY: Normal. No hydronephrosis. No renal calculi or focal parenchymal lesions. The kidney measures 13.1 cm in maximum dimension. SPLEEN: Normal. The spleen measures 12 cm in maximum dimension. FREE FLUID: None. IMPRESSION: No significant sonographic findings within the examined abdomen. No evidence of cholelithiasis, cholecystitis or biliary tract obstruction.
--- NOTE | 2016-11-03 10:57 | RADIOLOGY REPORT ---
EXAMINATION: XR CHEST CLINICAL INFORMATION: Pneumonia COMPARISON: Prior chest radiographs most recent 11/02/2016. CT scan of the abdomen and pelvis October 2016. TECHNIQUE: 2 views of the chest were obtained. FINDINGS: Lungs and pleural spaces minimal linear opacity at the bases similar to prior I do not see a retrocardiac opacity. The cardiac silhouette mediastinum pulmonary vascularity are normal. Bone and soft tissues unremarkable. IMPRESSION: No definite signs for pneumonia. No retrocardiac opacity noted on today's exam. Stable bibasilar linear opacities likely discoid atelectasis
--- NOTE | 2016-11-03 14:14 | NUR ---
NURSING NOTE: PT TRANSFERED TO [facility] FOR MONITORING. PT A&O, OOB INDEPENDENTLY, VSS. PT DENIES CHEST RODRIGUEZ OR SOB. REPORT GIVEN TO RAFFY. CHART AND MEDICATIONS SENT WITH PT
[2016-11-03 14:47] VITALS: BP 142/70
--- NOTE | 2016-11-03 15:58 | Transfer of Care Summary ---
Hospital Course Course Hospital Course: Patient is a 66-year-old male with a past medical history of pericarditis one year ago, A. fib, hypertension, hyperlipidemia, and SYEDA who presents with a chief complaint of fevers, chills, fatigue, and fever. He also experienced tremors, headache, muscle aches, sore throat, palpitations and epigastric pain which he states may be due to indigestion. He says the pain is a 2 out of 10 but now is a 0. His also notes that the patient is unable to take a deep breath and has been breathing faster than normal. The patient himself denies any shortness of breath. The patient and his noted that they saw a tick on the ground about 2 weeks ago. They are unsure if the tick was attached to the patient or if the tick was on their dog. Patient denies any rashes. Significant Procedures: CXR (11/02/2016) IMPRESSION: Retrocardiac opacity could represent atelectasis or pneumonia. CXR (11/03/2016) IMPRESSION: No definite signs for pneumonia. No retrocardiac opacity noted on today's exam. Stable bibasilar linear opacities likely discoid atelectasis CT ABD AND PELVIS(11/02/2016) IMPRESSION: No acute intra-abdominal process. ABD U/S (11/03/2016) IMPRESSION: No significant sonographic findings within the examined abdomen. No evidence of cholelithiasis, cholecystitis or biliary tract obstruction. Assessment/Plan: 1. Shortness of breath Chest x-ray revealed retrocardiac opacity which could represent atelectasis or pneumonia. We will begin treating him with ceftriaxone and azithromycin for presumed pneumonia. Although we are currently unsure of his origin of fever as he symptoms could also be caused by a virus or possibly lyme disease due to his exposure. We will need to also r/o ACS will serial trops and an ekg given his history of CAD and HLD. His intial trop was .02 and second was .03. -Continue ceftriaxone and azithromycin -Follow-up sputum culture, blood cultures, and Lyme titers -f/u cbc, bmp -f/u serial trops and ekg -continue home eqliquis 5mg po BID -consider ID consult for FUO if attending agrees 2. Transaminitis The patient was found to have an AST of 19, ALP 225, ALP 220, GG 506 and throat bilirubin of 1.5. His CT abdomen do not reveal any acute intrahepatic cause such as a gallstone or pancreatitis or active hepatitis. -f/u hepatic panel -consider hepatitis viral panel -Abd u/s shows No significant sonographic findings within the examined abdomen. No evidence of cholelithiasis, cholecystitis or biliary tract obstruction. 3. HTN (hypertension) We will continue the patient's home medications. -Continue metoprolol 12.5 mg by mouth twice a day
--- NOTE | 2016-11-03 16:06 | Cons- Infect Disease ---
General Information and HPI Consulting Request Date of Consult: 11/03/16 Requested By: NORMA MANCIA MD Reason for Consult: Unexplained fever Source of Information: patient, old records History of Present Illness: This is a 66-year-old man with a history of atrial fibrillation, maintained on Eliquis, hypertension, and obstructive sleep apnea, last hospitalized one year prior to admission with pericarditis, admitted on November 02 after presenting to the emergency room with a 4 to 5 day history of fevers, chills, headaches and generalized body aches which occurred while he was camping in [place]. On admission he was febrile to 102.5. Laboratory data revealed a white blood cell count of 7.5, BUN/creatinine 16 and 0.9, bilirubin 1.5, alk phosphatase 228, AST /ALT 199 and 225. Chest x-ray revealed a retrocardiac opacity. CT of the abdomen and pelvis was negative. Right upper quadrant ultrasound was negative. He was given Ceftriaxone and Azithromycin for possible pneumonia. He has remained febrile with a temperature to 103 this morning. He is uncomfortable from the fever but he denies any specific complaints. He does note a dry cough but denies any chest pain or shortness of breath. He reports no GI or symptoms. He has not noted any tick or mosquito bites but does spend a significant amount of time outdoors and has been exposed. Allergies/Medications Allergies: Coded Allergies: lisinopril (COUGHING 11/12/15) Home Med List: Apixaban (Eliquis) 5 MG TABLET 1 TAB PO BID BLOOD THINNER (Reported) Cholecalciferol (Vitamin D3) (Vitamin D) 1,000 UNIT TABLET 1 TAB PO DAILY SUPPLEMENT (Reported) Cyanocobalamin (Vitamin B-12) 1,000 MCG TABLET 1 TAB PO DAILY SUPPLEMENT ( Reported) Metoprolol Tartrate 25 MG TABLET 0.5 TAB PO BID HBP (Reported) Multivitamin (Daily Multiple Vitamin) 1 EACH TABLET 1 TAB PO DAILY SUPPLEMENT (Reported) Simvastatin (Simvastatin*) 40 MG TABLET 1 TAB PO QPM CHOLESTEROL (Reported) Valsartan/Hydrochlorothiazide (Valsartan-Hctz 320-25 MG Tab) 1 EACH TABLET 1 TAB PO DAILY HIGH BLOOD PRESSURE (Reported) Vitamin B Complex 1 EACH CAPSULE 1 CAP PO DAILY SUPPLEMENT (Reported) Past History Travel History Traveled to [place] past 21 day No Medical History Neurological: NONE EENT: NONE Cardiovascular: AFIB, CAD, hypertension, hyperlipidemia, PERICARDITIS Respiratory: SYEDA Gastrointestinal: NONE Hepatic: NONE Renal: NONE Musculoskeletal: NONE Psychiatric: depression Endocrine: NONE Blood Disorders: NONE Cancer(s): NONE REHABILITATION THERAPIST/Reproductive: NONE History of MRSA: No History of VRE: No History of CDIFF: No Isolation History: Standard Surgical History Surgical History: hemorroidectomy; rectal prolapse Family History Relations & Conditions If Any: Relation not specified for: FH: cancer FH: diabetes mellitus FH: heart disease Psychosocial History Services at Home: None Smoking Status: Never Smoked ETOH Use: occasional use Functional Ability ADLs Independent: dressing, eating, toileting, bathing. Ambulation: independent IADLs Independent: shopping, housework, food prep, telephone, transportation, medication admin. ECHO Results (as available) Date of last Echo 11/11/15 EF% 60 Review of Systems Review of Systems All Other Systems: Reviewed and Negative Exam & Diagnostic Data Last 24 Hrs of Vital Signs/I&O Vital Signs Date Time Temp Pulse Resp B/P B/P Pulse O2 O2 Flow FiO2 Mean Ox Delivery Rate 11/03 1447 100.2 75 18 142/70 93 Room Air 11/03 1427 100.3 / 1409 Room Air Room Air 11/03 1255 99.5 / 1150 99.0 07/ 1115 74 128/90 07/ 0715 100.1 07/06 0641 103.0 88 20 150/90 93 Nasal 2.0L Cannula / 0640 100.7 07/ 0639 100.7 / 0538 103.0 /06 0100 95 BIPAP / 0058 108 152/100 07/06 0053 97.7 109 26 192/108 89 07/06 0043 108 152/100 07/ 2227 97.9 63 20 146/82 96 07/05 2206 Room Air 11/02 2028 97.3 64 18 130/65 96 07/05 1812 100.4 07/ 1745 101.6 07/ 1718 75 18 137/64 96 Intake & Output / 1600 07/06 0800 07/06 0000 Intake Total 1400 720 390 Output Total Balance 1400 720 390 Intake, IV 800 600 150 Intake, Oral 600 120 240 Patient 250 lb Weight Weight Reported by Patient Measurement Method Physical Exam Other Physical Findings: He is awake and alert in no acute distress. MAXIMUM TEMPERATURE 103. Skin reveals no rash. HEENT exam is negative. Neck is supple with no adenopathy. Lungs crackles at the right base. Heart regular rhythm with no murmur. Abdomen is soft, nontender with positive bowel sounds. Back no CVA tenderness. Extremities no cyanosis, clubbing or edema. Neuro is without focality. Last 24 Hours of Lab Results: Laboratory Tests 11/03 11/03 11/03 11/02 1110 0510 0510 2315 Chemistry Sodium (137 - 145 mmol/L) 137 Potassium (3.5 - 5.1 mmol/L) 3.4 L Chloride (98 - 107 mmol/L) 101 Carbon Dioxide (22 - 30 mmol/L) 27 Anion Gap (5 - 16) 9 BUN (9 - 20 mg/dL) 19 Creatinine (0.7 - 1.2 mg/dL) 0.9 Estimated GFR (>60 ml/min) > 60 BUN/Creatinine Ratio (7 - 25 %) 21.1 Magnesium (1.6 - 2.3 mg/dL) 2.0 Total Bilirubin (0.2 - 1.3 mg/dL) 1.8 H Direct Bilirubin (< 0.4 mg/dL) 1.4 H AST (17 - 59 U/L) 159 H ALT (21 - 72 U/L) 204 H Alkaline Phosphatase (< 127 U/L) 245 H Troponin I (<0.11 ng/ml) 0.07 0.11 *H 0.03 Total Protein (6.3 - 8.2 g/dL) 5.9 L Albumin (3.5 - 5.0 g/dL) 3.2 L Triglycerides (<150 mg/dL) 116 Cholesterol (< 200 MG/DL) 122 LDL Cholesterol, Calc (65 - 129 mg/dL) 75 HDL Cholesterol (40 - 60 mg/dL) 24 L Cholesterol/HDL Ratio (0.00 - 4.88 %) 5.1 H Hematology CBC w Diff MAN DIFF ORDERED WBC (4.8 - 10.8 /CUMM) 6.1 RBC (4.70 - 6.10 /CUMM) 3.98 L Hgb (14.0 - 18.0 G/DL) 11.6 L Hct (42 - 52 %) 34.8 L MCV (80.0 - 94.0 FL) 87.5 MCH (27.0 - 31.0 PG) 29.3 RDW (11.5 - 14.5 %) 13.0 Plt Count (130 - 400 /CUMM) 147 MPV (7.4 - 10.4 FL) 7.4 Gran % (42.2 - 75.2 %) 85.8 H Lymphocytes % (20.5 - 51.1 %) 6.1 L Monocytes % (1.7 - 9.3 %) 8.1 Eosinophils % (0 - 5 %) 0 Basophils % (0.0 - 2.0 %) 0 L Absolute Granulocytes (1.4 - 6.5 /CUMM) 5.3 Segmented Neutrophils (42.2 - 75.2 %) 86 H Band Neutrophils (0.0 - 5.0 %) 6 H Absolute Lymphocytes (1.2 - 3.4 /CUMM) 0.4 L Lymphocytes (20.5 - 51.1 %) 7 L Monocytes (1.7 - 9.3 %) 1 L Absolute Monocytes (0.10 - 0.60 /CUMM) 0.5 Absolute Eosinophils (0.0 - 0.7 /CUMM) 0 Absolute Basophils (0.0 - 0.2 /CUMM) 0 Platelet Estimate (ADEQUATE) ADEQUATE Polychromasia 1+ Ovalocytes FEW PUBS MCHC (33.0 - 37.0 G/DL) 33.5 Other Body Source Fld Total RBCs Counted (%) 100 Serology Ehrlichia DNA (PCR) Pending 11/02 1813 Chemistry Lactic Acid (0.7 - 2.1 mmol/L) 0.8 Last 24 Hours of Garret Results: Blood cultures 2 November 02 negative Diagnostic Data Recent Imaging Findings: Chest x-ray November 03, personally reviewed, negative CT of the abdomen and pelvis November 02 negative. Right upper quadrant ultrasound November 02 negative. Assessment/Plan Assessment/Plan Impression: This is a 66-year-old man with a history of hypertension, atrial fibrillation and obstructive sleep apnea admitted on November 02 with a 4 to 5 day history of fevers, chills and body aches while camping in [place], found to be febrile with a normal white blood cell count and elevated liver enzymes, with evaluation including blood cultures, chest x-ray, CT of the abdomen and pelvis and right upper quadrant ultrasound negative for any obvious focus of infection. He has had a significant outdoor exposure and, therefore, is at risk for tickborne and mosquito born infections. His positive Lyme titer may be old but confirms his risk and, given the absence of any other focus of infection, it would be reasonable to treat him for Lyme disease. Co-infection with Anaplasma, though he has no neutropenia or thrombocytopenic, or Babesia, though he has no evidence for hemolytic anemia, is also possible. West Nile virus is also a consideration , though treatment for this is supportive. Suggestion: 1. Review peripheral smear for evidence of morulae within the white blood cells 2. Obtain urinalysis 3. Hepatitis serologies 4. Follow-up Lyme Western blot and Anaplasma PCR 5. Serum for West Nile virus titers 6. Discontinue Ceftriaxone and Azithromycin 7. Begin Doxycycline 100 mg po every 12 hours Consult Acknowledgment - Thank you for your consult request.
--- NOTE | 2016-11-03 20:14 | ECHOCARDIOGRAM REPORT ---
DORINDA HOWARD Age: 66 : 1950 Gender: M Exam Date: 11/03/2016 14:59 Exam Location: [facility] Ht (in): 72 Wt (lb): 250 BSA: 2.44 BP: / Ordering Physician: NAWAF CONNELLY MD Referring Physician: NAWAF CONNELLY MD Technologist: Aries Chery [facility] Room Number: 179 bed 1 Indications: HYPOTENSION Rhythm: Sinus Technical Quality: fair FINDINGS Left Ventricle Normal global left ventricular size, wall thickness, systolic function with no obvious regional wall motion abnormalities. Normal left ventricular ejection fraction estimated at 60-65%. Right Ventricle Normal right ventricular size and function. Right Atrium Normal right atrial size. Left Atrium Normal left atrial size. Mitral Valve Mitral valve normal in structure and function. Trace mitral regurgitation. Aortic Valve Aortic valve not well visualized, grossly normal. Tricuspid Valve Tricuspid valve not well visualized, grossly normal. Trace to mild tricuspid regurgitation. Pulmonic Valve Pulmonic valve not well visualized, grossly normal. Pericardium Normal pericardium. Great Vessels Normal size aortic root. CONCLUSIONS Normal left and right ventricular systolic function. No regional LV segmental abnormalities. No significant valvular abnormalities. Chris Roche M.D. (Electronically Signed) Final Date: 03 November 2016 20:13 MEASUREMENTS (Male / Female) Normal Values 2D ECHO LV Diastolic Diameter PLAX 5.6 cm 4.2 - 5.9 / 3.9 - 5.3 cm LV Systolic Diameter PLAX 3.5 cm 2.1 - 4.0 cm LV Fractional Shortening PLAX 37.5 % 25 - 46 % LV Ejection Fraction 2D Teich 66.9 % IVS Diastolic Thickness 1.0 cm LVPW Diastolic Thickness 1.0 cm LV Relative Wall Thickness 0.4 RV Internal Dim ED PLAX 2.9 cm 1.9 - 3.8 cm LVOT Diameter 2.2 cm Aortic Root Diameter 2.6 cm LA Systolic Diameter LX 3.2 cm 3.0 - 4.0 / 2.7 - 3.8 cm LV Ejection Fraction MOD BP 67.9 % >= 55 % LV Diastolic Length 4C 8.3 cm 6.9 - 10.3 cm LV Diastolic Area 4C 26.7 cm LV Diastolic Volume MOD 4C 70.0 cm LV Ejection Fraction MOD 4C 65.7 % LV Stroke Volume MOD 4C 46.0 cm LV Systolic Length 4C 7.1 cm LV Systolic Area 4C 14.0 cm LV Systolic Volume MOD 4C 24.0 cm LV Ejection Fraction MOD 2C 67.5 % LV Diastolic Volume 4C AL 73.4 cm 85 - 139 / 69 - 109 cm LV Systolic Volume 4C AL 23.3 cm LV Ejection Fraction 4C AL 68.2 % LV Stroke Volume 4C AL 50.0 cm LV Ejection Fraction 2C AL 68.6 % DOPPLER AV Peak Velocity 189.0 cm/s AV Peak Gradient 14.3 mmHg LVOT Peak Velocity 137.0 cm/s LVOT Peak Gradient 7.5 mmHg AV Area Cont Eq pk 2.8 cm Mitral E Point Velocity 92.8 cm/s Mitral A Point Velocity 79.0 cm/s Mitral E to A Ratio 1.2 MV Deceleration Time 222.0 ms PV Peak Velocity 117.0 cm/s PV Peak Gradient 5.5 mmHg
[2016-11-03 23:50] VITALS: BP 140/80
[2016-11-04 06:00] VITALS: BP 150/80
--- NOTE | 2016-11-04 06:56 | PN- Housestaff ---
Subjective Follow-up For: - Fever associated with chills - Elevated liver enzymes - Paroxysmal atrial fibrillation Complaints: no complaints Tele-Events Since Last Visit: Normal sinus rhythm, heart rate in the range of 77-88. He was febrile overnight. MAXIMUM TEMPERATURE 101.4. Subjective: Was comfortable this morning. Stated that he felt about the same compared to yesterday. No shortness of breath, chest pain, palpitations. No abdominal pain , vitals stable overnight. Review of Systems Constitutional: Reports: see HPI. Objective Last 24 Hrs of Vital Signs/I&O Vital Signs Date Time Temp Pulse Resp B/P B/P Pulse O2 O2 Flow FiO2 Mean Ox Delivery Rate 11/04 0910 100.5 11/04 0910 100.5 101 150/80 11/04 0600 99.8 101 20 150/80 92 Room Air 11/04 0000 CPAP 11/03 2350 98.9 77 20 140/80 92 Room Air 11/03 2104 84 150/80 11/03 2045 101.5 11/03 1953 98 Room Air Room Air 11/03 1945 102.0 11/03 1526 100.3 Intake & Output 11/04 1600 11/04 0800 11/04 0000 Intake Total 500 300 Output Total Balance 500 300 Intake, Oral 500 300 Physical Exam General Appearance: Alert Other Physical Findings: General Exam: AAOx3, No acute distress, Skin: No rashes, no breakdown HEENT: PERRLA, EOMI Neck: Supple, No JVD No cervical lymphadenopathy CVS: Reg Rate, Normal S1,S2, No MGR Resp: Normal air entry, no ronchi/rales Abdomen: Soft, No tenderness, Normal Bowel Sounds Neuro: Normal Speech, Strength 5/5 b/l x 4 extremities, Sensation intact, CN III -XII NL, Reflexes 2+ Extremities: No cyanosis, 1+ pedal edema Current Medications: Current Medications Sig/Luba Start time Last Medication Dose Route Stop Time Status Admin Acetaminophen 650 MG Q4P PRN 11/03 1230 AC 11/04 PO 0910 Albuterol Sulfate 3 ML Q4P PRN 11/03 1600 AC INH Apixaban 5 MG BID 11/02 2200 AC 11/04 PO 0910 Azithromycin 500 MG DAILY@11/03 1900 CAN Sodium Chloride 250 ML IV Ceftriaxone Sodium 1,000 MG DAILY@11/03 190 CAN IV Doxycycline Hyclate 100 MG 0600,1800 11/04 0600 AC 11/04 PO 0600 Doxycycline Hyclate 100 MG BID 11/03 2200 DC 11/03 PO 1752 Losartan Potassium 100 MG DAILY 11/04 1133 DC PO Metoprolol Tartrate 12.5 MG BID 11/03 1100 AC 11/04 PO 0910 Last 24 Hrs of Lab/Garret Results Last 24 Hrs of Labs/Mics: Laboratory Tests 11/04/16 0710: Anion Gap 10, Estimated GFR > 60, BUN/Creatinine Ratio 18.8, Total Bilirubin 2.8 H, Direct Bilirubin 2.1 H, AST 130 H, ALT 187 H, Alkaline Phosphatase 327 H , Total Protein 5.8 L, Albumin 3.1 L, CBC w Diff MAN DIFF ORDERED, RBC 3.78 L , MCV 87.9, MCH 29.3, RDW 13.6, MPV 8.4, Gran % 83.2 H, Lymphocytes % 8.7 L, Monocytes % 7.9, Eosinophils % 0.1, Basophils % 0.1, Absolute Granulocytes 7.5 H, Segmented Neutrophils 71, Band Neutrophils 14 H, Absolute Lymphocytes 0.8 L , Lymphocytes 9 L, Monocytes 6, Absolute Monocytes 0.7 H, Absolute Eosinophils 0, Absolute Basophils 0, Normocytic RBCs VERIFIED, Normochromic RBCs VERIFIED, PUBS MCHC 33.3 11/04/16 0600: West Nile Virus IgG Ab Pending, West Nile Virus IgM Ab Pending 11/03/16 1700: Urinalysis LIGHT H, Urine Color ORANG H, Urine Clarity HAZY H, Urine pH 6.0, Ur Specific [place] 1.025, Urine Protein 100 H, Urine Ketones NEG, Urine Nitrite NEG, Urine Bilirubin POS@ICTO H, Urine Urobilinogen 2.0 H, Ur Leukocyte Esterase NEG, Ur Microscopic SEDIMENT EXAMINED, Urine RBC >75 H, Urine WBC 1-3 H, Ur Epithelial Cells RARE, Urine Bacteria FEW H, Granular Casts 1-3 H, Urine Mucus FEW, Urine Hemoglobin LARGE H, Urine Glucose NEG Microbiology 11/03 1699 URINE ROUT: Legionella Antigen - RES 11/03 1699 URINE ROUT: Streptococcus pneumoniae Antigen (M - RES 11/03 1699 URINE ROUT: Urine Culture - RES Assessment/Plan Assessment: Mr. Robles is a 66-year-old male with a past medical history of pericarditis( dx'ed 2016), Hermila. fib on DOAC, HTN, HLD, and SYEDA who is being evaluated for fevers, chills, fatigue, and fever 4 days. At the time of admission, temperature 1 or 2.5, pulse rate 100, respiration 20, blood pressure 152/85, was ox 94% on room air. Lab findings indicated no leukocytosis, WBC 7.5, hemoglobin 13.4, MCV 88, electrolytes-sodium 134, potassium 3.4 (replenish), bicarbonate 29, BUN 16, serum creatinine 0.9 (normal renal function), lactic acid 2.1, abnormal liver panel-total bilirubin 1.5, direct bilirubin 1.0, GGT 506, AST 199, ALT 25, alkaline phosphatase 228 (likely indicates cholestasis/biliary tree involvement), cardiac enzymes-0.02, 0.03. Lyme serology 1.88. (Apparently elevated as per the lab result report), Lyme antibodies-Western blotting looking for several IgG is pending at this time. West Nile virus IgG and IgM antibody-pending. Hepatitis panel negative. Anaplasmosis, Ehrlichia DNA-pending. Urinalysis revealed elevated urine protein about 100, urobilinogen positive, urine urobilinogen elevated, urine leukocyte esterase negative, Radiological findings-chest x-ray revealed retrocardiac opacity likely atelectasis/pneumonia. CT scan abdomen and pelvis-was unremarkable, did not reveal any acute intra-abdominal processes. Ultrasound abdomen did not reveal any sonographic findings suggestive of cholelithiasis or cholecystitis or biliary tract obstruction. Echocardiogram revealed ejection fraction between 60-65%, with no obvious regional wall motion abnormalities. No significant valvular abnormalities were noted. Differential diagnosis: #1 Lyme disease #2 acalculous cholecystitis 1. Shortness of breath- etiology unclear. Initial working diagnosis, was community-acquired pneumonia. The patient was started on ceftriaxone and azithromycin, which are currently discontinued. Ruled out for acute coronary syndrome. #2 Fever-Lyme titer positive. Continues to have fever, and has been started on doxycycline. At this time, is safe to resume that this patient could possibly have a tickborne illness. Peripheral smear did not show any abnormal RBCs and or neutrophils. Await results from Western blot-Lyme's test, Anaplasma PCR, West Nile. Considering the season, and symptoms need to rule out West nile PCR. 2. Elevated liver enzymes: u hepatic panel. Elevated liver enzymes, particularly increasing alkaline phosphatase and GGT makes be any cause more likely. The patient has any signs of symptoms of cholangitis, would be worthwhile to get an MRCP. #3 hypertension-vital stable at this time. Continue home dose of metoprolol and restart ARB. If the patient's blood pressure becomes unstable, discontinue all antihypertensives. Problem List: 1. Shortness of breath 2. Transaminitis 3. Elevated bilirubin 4. HTN (hypertension) Pain Ratin Pain Location: back Pain Goal: Pain 4 or less Pain Plan: tylenol prn Tomorrow's Labs & Rationales: cbc- to monitor for leucocytosis. pt had fever. bep- to monitor electrolytes Liver function panel-elevated bilirubin cbc- to monitor for leucocytosis. pt had fever. bep- to monitor electrolytes Liver function panel-elevated bilirubin bep- to monitor electrolytes Liver function panel-elevated bilirubin
[2016-11-04 08:54] LABS: HEMATOCRIT 33.2 % (42-52); MEAN CORPUSCULAR HGB 29.3 PG (27.0-31.0); MEAN CORPUSCULAR HGB CONC 33.3 G/DL (33.0-37.0); MEAN CORPUSCULAR VOLUME 87.9 FL (80.0-94.0); MEAN PLATELET VOLUME 8.4 FL (7.4-10.4); PLATELET COUNT 178 /CUMM (130-400); RBC DISTRIBUTION WIDTH 13.6 % (11.5-14.5); RED BLOOD CELL CT 3.78 /CUMM (4.70-6.10)
[2016-11-04 10:57] LABS: ABSOLUTE BASOPHIL COUNT 0 /CUMM (0.0-0.2); ABSOLUTE EOSINOPHIL COUNT 0 /CUMM (0.0-0.7); ABSOLUTE GRANULOCYTE CT 7.5 /CUMM (1.4-6.5); ABSOLUTE LYMPH COUNT 0.8 /CUMM (1.2-3.4); ABSOLUTE MONOCYTE COUNT 0.7 /CUMM (0.10-0.60); BASOPHIL % 0.1 % (0.0-2.0); EOSINOPHIL % 0.1 % (0-5); GRANULOCYTE % 83.2 % (42.2-75.2)
--- NOTE | 2016-11-04 11:37 | PN- Cardiology ---
Subjective Subjective: Still with malaise. MAXIMUM TEMPERATURE 101.5. No chest pain or palpitations. Objective Vital Signs and I&Os Vital Signs Date Time Temp Pulse Resp B/P B/P Pulse O2 O2 Flow FiO2 Mean Ox Delivery Rate 11/04 0910 100.5 11/04 0910 100.5 101 150/80 11/04 0600 99.8 101 20 150/80 92 Room Air / 0000 CPAP 11/03 2350 98.9 77 20 140/80 92 Room Air 11/03 2104 84 150/80 11/03 2045 101.5 11/03 1953 98 Room Air Room Air 11/03 1945 102.0 11/03 1526 100.3 11/03 1447 100.2 75 18 142/70 93 Room Air 11/03 1427 100.3 11/03 1409 Room Air Room Air 11/03 1255 99.5 11/03 1150 99.0 Intake & Output 11/04 1600 11/04 0800 / 0000 11/03 1600 11/03 0800 11/03 0000 Intake Total 300 1400 720 390 Output Total Balance 300 1400 720 390 Intake, IV 800 600 150 Intake, Oral 300 600 120 240 Patient 250 lb Weight Weight Reported by Patient Measurement Method Physical Exam: General: no apparent distress. Alert. Eyes: No obvious scleral icterus. HEENT: No jugular venous distention or abnormal jugular venous pulsations. Cardiovascular: Normal intensity S1/S2. Regular Respiratory: Lungs clear to auscultation bilaterally. Abdomen: Soft, nontender with no guarding or rebound tenderness. Musculoskeletal: No clubbing or cyanosis noted Skin: Warm Neurologic: No gross focal deficits noted. Current Medications: Current Medications Sig/Luba Start time Last Medication Dose Route Stop Time Status Admin Acetaminophen 650 MG Q4P PRN 11/03 1230 AC 11/04 PO 0910 Acetaminophen 650 MG Q6P PRN 11/02 2015 DC 11/03 PO 0538 Albuterol Sulfate 3 ML Q4P PRN 11/03 1600 AC INH Apixaban 5 MG BID 11/020 AC 11/04 PO 0910 Azithromycin 500 MG DAILY@11/03 1900 CAN Sodium Chloride 250 ML IV Ceftriaxone Sodium 1,000 MG DAILY@11/03 1900 CAN IV Doxycycline Hyclate 100 MG 0600,1800 11/04 06 AC 11/04 PO 0600 Doxycycline Hyclate 100 MG BID 11/03 2200 DC 11/03 PO 1752 Metoprolol Tartrate 12.5 MG BID 11/03 1100 AC 11/04 PO 0910 Results Last 48 Hrs of Labs/Mics: Laboratory Tests 11/04/16 0710: Anion Gap 10, Estimated GFR > 60, BUN/Creatinine Ratio 18.8, Total Bilirubin 2.8 H, Direct Bilirubin 2.1 H, AST 130 H, ALT 187 H, Alkaline Phosphatase 327 H , Total Protein 5.8 L, Albumin 3.1 L, CBC w Diff MAN DIFF ORDERED, RBC 3.78 L , MCV 87.9, MCH 29.3, RDW 13.6, MPV 8.4, Gran % 83.2 H, Lymphocytes % 8.7 L, Monocytes % 7.9, Eosinophils % 0.1, Basophils % 0.1, Absolute Granulocytes 7.5 H, Segmented Neutrophils 71, Band Neutrophils 14 H, Absolute Lymphocytes 0.8 L , Lymphocytes 9 L, Monocytes 6, Absolute Monocytes 0.7 H, Absolute Eosinophils 0, Absolute Basophils 0, Normocytic RBCs VERIFIED, Normochromic RBCs VERIFIED, PUBS MCHC 33.3 11/04/16 0600: West Nile Virus IgG Ab Pending, West Nile Virus IgM Ab Pending 11/03/16 1700: Urinalysis LIGHT H, Urine Color ORANG H, Urine Clarity HAZY H, Urine pH 6.0, Ur Specific Rufe 1.025, Urine Protein 100 H, Urine Ketones NEG, Urine Nitrite NEG, Urine Bilirubin POS@ICTO H, Urine Urobilinogen 2.0 H, Ur Leukocyte Esterase NEG, Ur Microscopic SEDIMENT EXAMINED, Urine RBC >75 H, Urine WBC 1-3 H, Ur Epithelial Cells RARE, Urine Bacteria FEW H, Granular Casts 1-3 H, Urine Mucus FEW, Urine Hemoglobin LARGE H, Urine Glucose NEG 11/03/16 1110: Troponin I 0.07 11/03/16 0510: Magnesium 2.0, Troponin I 0.11 *H, Triglycerides 116, Cholesterol 122, LDL Cholesterol, Calc 75, HDL Cholesterol 24 L, Cholesterol/HDL Ratio 5.1 H, Hepatitis A IgM Ab NONREACTIVE, Hep Bs Antigen NONREACTIVE, Hep B Core IgM Ab Conf NONREACTIVE, Hepatitis C Antibody NONREACTIVE 11/03/16 0510: Anion Gap 9, Estimated GFR > 60, BUN/Creatinine Ratio 21.1, Total Bilirubin 1.8 H, Direct Bilirubin 1.4 H, AST 159 H, ALT 204 H, Alkaline Phosphatase 245 H, Total Protein 5.9 L, Albumin 3.2 L, CBC w Diff MAN DIFF ORDERED, RBC 3.98 L, MCV 87.5, MCH 29.3, RDW 13.0, MPV 7.4, Gran % 85.8 H, Lymphocytes % 6.1 L, Monocytes % 8.1, Eosinophils % 0, Basophils % 0 L, Absolute Granulocytes 5.3, Segmented Neutrophils 86 H, Band Neutrophils 6 H, Absolute Lymphocytes 0.4 L, Lymphocytes 7 L, Monocytes 1 L, Absolute Monocytes 0.5, Absolute Eosinophils 0 , Absolute Basophils 0, Platelet Estimate ADEQUATE, Polychromasia 1+, Ovalocytes FEW, PUBS MCHC 33.5, Fld Total RBCs Counted 100, Ehrlichia DNA (PCR) Pending 11/02/16 2315: Troponin I 0.03 11/02/16 1814: Lactic Acid 0.8 11/02/16 1538: Lyme Ab (Western Blot) Pending, Lyme IgG 18 kDa Band Pending, Lyme IgG 23 kDa Band Pending, Lyme IgG 28 kDa Band Pending, Lyme IgG 30 kDa Band Pending, Lyme IgG 39 kDa Band Pending, Lyme IgG 41 kDa Band Pending, Lyme IgG 45 kDa Band Pending, Lyme IgG 58 kDa Band Pending, Lyme IgG 66 kDa Band Pending, Lyme IgG 93 kDa Band Pending, Lyme IgM (Western Blot) Pending, Lyme IgM 23 kDa Band Pending, Lyme IgM 39 kDa Band Pending, Lyme IgM 41 kDa Band Pending 11/02/16 1538: Anion Gap 13, Estimated GFR > 60, BUN/Creatinine Ratio 17.8, Glucose 190 H, Lactic Acid 2.1, Calcium 9.1, Magnesium 1.9, Total Bilirubin 1.5 H, Direct Bilirubin 1.0 H, GGT 506 H, AST 199 H, ALT 225 H, Alkaline Phosphatase 228 H, Troponin I 0.02, Total Protein 6.8, Albumin 3.9, Globulin 2.9, Albumin/ Globulin Ratio 1.3, APTT 37, CBC w Diff NO MAN DIFF REQ, RBC 4.51 L, MCV 88.0, MCH 29.7, RDW 13.0, MPV 7.4, Gran % 85.3 H, Lymphocytes % 6.0 L, Monocytes % 8.6, Eosinophils % 0.1, Basophils % 0 L, Absolute Granulocytes 6.4, Absolute Lymphocytes 0.5 L, Absolute Monocytes 0.6, Absolute Eosinophils 0, Absolute Basophils 0, PUBS MCHC 33.7, Lyme Disease Antibody 1.88 *H Recent Imaging Studies: Telemetry tracings were personally reviewed and shows sinus rhythm Echocardiogram CONCLUSIONS Normal left and right ventricular systolic function. No regional LV segmental abnormalities. No significant valvular abnormalities. Assessment/Plan Assessment/Plan 1. Fever chills fatigue body shaking consistent with infectious etiology. 2. Elevated liver function tests 3. History of paroxysmal atrial fibrillation currently in sinus rhythm and on appropriate anticoagulation 4. Mild elevation of troponinrelated to supply demand mismatch. 5. Sleep apnea 6. Dyslipidemia Patient remains stable and remains in sinus rhythm on telemetry. Echocardiogram reveals no evidence of new wall motion abnormalities. He is receiving doxycycline. Follow-up serology results. Continue anticoagulation. Mandeep Woodard MD [facility] Continue telemetry? No
--- NOTE | 2016-11-04 12:50 | PN- Infect Dx ---
Subjective Subjective: MAXIMUM TEMPERATURE 102. He feels improved with no further body aches or headaches. He denies any nausea, vomiting, abdominal pain or change in his bowels. Objective Last 24 Hrs of Vital Signs/I&O Vital Signs Date Time Temp Pulse Resp B/P B/P Pulse O2 O2 Flow FiO2 Mean Ox Delivery Rate 11/04 0910 100.5 11/04 0910 100.5 101 150/80 / 0600 99.8 101 20 150/80 92 Room Air 11/04 0000 CPAP 11/03 2350 98.9 77 20 140/80 92 Room Air 11/03 2104 84 150/80 11/03 2045 101.5 11/03 1953 98 Room Air Room Air 11/03 1945 102.0 11/03 1526 100.3 11/03 1447 100.2 75 18 142/70 93 Room Air 11/03 1427 100.3 11/03 1409 Room Air Room Air 11/03 1255 99.5 Intake & Output 11/04 1600 11/04 0800 11/04 0000 Intake Total 300 Output Total Balance 300 Intake, Oral 300 Physical Exam Other Physical Findings: He appears more comfortable in no acute distress Skin no rash Neck is supple with no adenopathy Lungs are clear Heart regular rhythm with no murmur Abdomen is soft, nontender with positive bowel sounds Results Last 24 Hours of Lab Results: Laboratory Tests 11/04 11/04 0710 0600 Chemistry Sodium (137 - 145 mmol/L) 135 L Potassium (3.5 - 5.1 mmol/L) 4.0 Chloride (98 - 107 mmol/L) 99 Carbon Dioxide (22 - 30 mmol/L) 26 Anion Gap (5 - 16) 10 BUN (9 - 20 mg/dL) 15 Creatinine (0.7 - 1.2 mg/dL) 0.8 Estimated GFR (>60 ml/min) > 60 BUN/Creatinine Ratio (7 - 25 %) 18.8 Total Bilirubin (0.2 - 1.3 mg/dL) 2.8 H Direct Bilirubin (< 0.4 mg/dL) 2.1 H AST (17 - 59 U/L) 130 H ALT (21 - 72 U/L) 187 H Alkaline Phosphatase (< 127 U/L) 327 H Total Protein (6.3 - 8.2 g/dL) 5.8 L Albumin (3.5 - 5.0 g/dL) 3.1 L Hematology CBC w Diff MAN DIFF ORDERED WBC (4.8 - 10.8 /CUMM) 9.0 RBC (4.70 - 6.10 /CUMM) 3.78 L Hgb (14.0 - 18.0 G/DL) 11.1 L Hct (42 - 52 %) 33.2 L MCV (80.0 - 94.0 FL) 87.9 MCH (27.0 - 31.0 PG) 29.3 RDW (11.5 - 14.5 %) 13.6 Plt Count (130 - 400 /CUMM) 178 MPV (7.4 - 10.4 FL) 8.4 Gran % (42.2 - 75.2 %) 83.2 H Lymphocytes % (20.5 - 51.1 %) 8.7 L Monocytes % (1.7 - 9.3 %) 7.9 Eosinophils % (0 - 5 %) 0.1 Basophils % (0.0 - 2.0 %) 0.1 Absolute Granulocytes (1.4 - 6.5 /CUMM) 7.5 H Segmented Neutrophils (42.2 - 75.2 %) 71 Band Neutrophils (0.0 - 5.0 %) 14 H Absolute Lymphocytes (1.2 - 3.4 /CUMM) 0.8 L Lymphocytes (20.5 - 51.1 %) 9 L Monocytes (1.7 - 9.3 %) 6 Absolute Monocytes (0.10 - 0.60 /CUMM) 0.7 H Absolute Eosinophils (0.0 - 0.7 /CUMM) 0 Absolute Basophils (0.0 - 0.2 /CUMM) 0 Normocytic RBCs VERIFIED Normochromic RBCs VERIFIED PUBS MCHC (33.0 - 37.0 G/DL) 33.3 Serology West Nile Virus IgG Ab Pending West Nile Virus IgM Ab Pending 11/03 1700 Urines Urinalysis LIGHT H Urine Color (YEL,AMB,STR) ORANG H Urine Clarity (CLEAR) HAZY H Urine pH (5.0 - 8.0) 6.0 Ur Specific [place] (1.001 - 1.035) 1.025 Urine Protein (NEG,<30 MG/DL) 100 H Urine Ketones (NEG) NEG Urine Nitrite (NEG) NEG Urine Bilirubin (NEG) POS@ICTO H Urine Urobilinogen (0.1 - 1.0 EU/dl) 2.0 H Ur Leukocyte Esterase (NEG) NEG Ur Microscopic SEDIMENT EXAMINED Urine RBC (0 - 5 /HPF) >75 H Urine WBC (0 - 2 /HPF) 1-3 H Ur Epithelial Cells (NONE,FEW) RARE Urine Bacteria (NEG/NONE) FEW H Granular Casts (NONE /LPF) 1-3 H Urine Mucus (FEW,NONE) FEW Urine Hemoglobin (NEG) LARGE H Urine Glucose (N MG/DL) NEG Last 24 Hours of Garret Results: Blood cultures 2 November 02 negative Urine culture November 03 negative Urine strep pneumo antigen and Legionella antigen November 03 negative Assessment/Plan Impression: Appears to be improving with fevers lower grade and with subjective improvement on Doxycycline Day 2 of treatment for a possible tickborne infection, such as Lyme disease, with the TRENT positive and Western blot pending. His white blood cell count and platelet count remain normal, making Anaplasma unlikely, and his peripheral smear is negative for any evidence of morulae. His liver enzymes remain elevated, with bilirubin and alk phosphatase increasing, though his AST and ALT are decreasing, but he has no GI symptoms and his CT of the abdomen and pelvis and right upper quadrant ultrasound were negative. Further imaging, for example with MRCP, could be considered if his liver enzymes continue to increase , though the yield is likely to be low. His urinalysis revealed microscopic hematuria, which can be seen with Lyme disease. Suggestion: 1. Follow-up Lyme Western blot and Anaplasma PCR 2. Continue to monitor liver enzymes 3. Continue Doxycycline
--- NOTE | 2016-11-04 15:25 | PN- Att Addend ---
Attending Addendum Attending Brief Note Patient complains of generalized fatigue and fever and he has minimal cough. He is not requiring any oxygen. He denies right upper quadrant pain. General Appearance: Alert, No Acute Distress Skin: Grossly normal HEENT: PEERLA Neck: Supple, No JVD Cardiovascular: Regular Rate, Normal S1, Normal S2, No Murmurs Lungs: Clear to Auscultation, Normal Air Movement Abdomen: Normal Bowel Sounds, Soft, No Tenderness Neurological: Normal Speech, Strength at 5/5 X4 Ext, Cranial Nerves 3-12 NL, Reflexes 2+ Extremities: No Clubbing, No Cyanosis, No Edema Vascular: Normal Pulses Assessment 66-year-old male with history of autism atrial fibrillation, hypertension, hyperlipidemia presenting with generalized symptoms of fever, malaise and fatigue apparently he was camping in [place] for last few days when he noticed the symptoms. Based on the history he did have upper respiratory symptoms and chest x-ray suggested retrocardiac infiltrate for which he was started on ceftriaxone and azithromycin for presumed pneumonia. He also had elevated LFTs with negative CAT scan abdomen. He has mild elevation of troponins without EKG changes and is currently in sinus rhythm. This is likely demand. echocardiogram is negative. LFTs are trending down at this point and patient is positive for Lyme antibody. Western blot is pending. Plan continue doxycycline Follow Lyme Western blot and Anaplasma PCR we'll continue to monitor pending above and until patient is symptomatically improved Continue other home medications DVT prophylaxis Current Medications Sig/Luba Start time Last Medication Dose Route Stop Time Status Admin Acetaminophen 650 MG Q4P PRN 11/03 1230 AC 11/04 PO 0910 Albuterol Sulfate 3 ML Q4P PRN 11/03 1600 AC INH Apixaban 5 MG BID 11/02 2200 AC 11/04 PO 0910 Azithromycin 500 MG DAILY@11/03 1900 CAN Sodium Chloride 250 ML IV Ceftriaxone Sodium 1,000 MG DAILY@11/03 1900 CAN IV Doxycycline Hyclate 100 MG 0600,1800 11/04 0600 AC 11/04 PO 0600 Doxycycline Hyclate 100 MG BID 11/03 2200 DC 11/03 PO 1752 Losartan Potassium 100 MG DAILY 11/04 1530 UNVr PO Losartan Potassium 100 MG DAILY 11/04 1133 DC PO Metoprolol Tartrate 12.5 MG BID 11/03 1100 AC 07/07 PO 0910 Laboratory Tests 11/04 11/04 0710 0600 Chemistry Sodium (137 - 145 mmol/L) 135 L Potassium (3.5 - 5.1 mmol/L) 4.0 Chloride (98 - 107 mmol/L) 99 Carbon Dioxide (22 - 30 mmol/L) 26 Anion Gap (5 - 16) 10 BUN (9 - 20 mg/dL) 15 Creatinine (0.7 - 1.2 mg/dL) 0.8 Estimated GFR (>60 ml/min) > 60 BUN/Creatinine Ratio (7 - 25 %) 18.8 Total Bilirubin (0.2 - 1.3 mg/dL) 2.8 H Direct Bilirubin (< 0.4 mg/dL) 2.1 H AST (17 - 59 U/L) 130 H ALT (21 - 72 U/L) 187 H Alkaline Phosphatase (< 127 U/L) 327 H Total Protein (6.3 - 8.2 g/dL) 5.8 L Albumin (3.5 - 5.0 g/dL) 3.1 L Hematology CBC w Diff MAN DIFF ORDERED WBC (4.8 - 10.8 /CUMM) 9.0 RBC (4.70 - 6.10 /CUMM) 3.78 L Hgb (14.0 - 18.0 G/DL) 11.1 L Hct (42 - 52 %) 33.2 L MCV (80.0 - 94.0 FL) 87.9 MCH (27.0 - 31.0 PG) 29.3 RDW (11.5 - 14.5 %) 13.6 Plt Count (130 - 400 /CUMM) 178 MPV (7.4 - 10.4 FL) 8.4 Gran % (42.2 - 75.2 %) 83.2 H Lymphocytes % (20.5 - 51.1 %) 8.7 L Monocytes % (1.7 - 9.3 %) 7.9 Eosinophils % (0 - 5 %) 0.1 Basophils % (0.0 - 2.0 %) 0.1 Absolute Granulocytes (1.4 - 6.5 /CUMM) 7.5 H Segmented Neutrophils (42.2 - 75.2 %) 71 Band Neutrophils (0.0 - 5.0 %) 14 H Absolute Lymphocytes (1.2 - 3.4 /CUMM) 0.8 L Lymphocytes (20.5 - 51.1 %) 9 L Monocytes (1.7 - 9.3 %) 6 Absolute Monocytes (0.10 - 0.60 /CUMM) 0.7 H Absolute Eosinophils (0.0 - 0.7 /CUMM) 0 Absolute Basophils (0.0 - 0.2 /CUMM) 0 Normocytic RBCs VERIFIED Normochromic RBCs VERIFIED PUBS MCHC (33.0 - 37.0 G/DL) 33.3 Serology West Nile Virus IgG Ab Pending West Nile Virus IgM Ab Pending 11/03 1700 Urines Urinalysis LIGHT H Urine Color (YEL,AMB,STR) ORANG H Urine Clarity (CLEAR) HAZY H Urine pH (5.0 - 8.0) 6.0 Ur Specific [place] (1.001 - 1.035) 1.025 Urine Protein (NEG,<30 MG/DL) 100 H Urine Ketones (NEG) NEG Urine Nitrite (NEG) NEG Urine Bilirubin (NEG) POS@ICTO H Urine Urobilinogen (0.1 - 1.0 EU/dl) 2.0 H Ur Leukocyte Esterase (NEG) NEG Ur Microscopic SEDIMENT EXAMINED Urine RBC (0 - 5 /HPF) >75 H Urine WBC (0 - 2 /HPF) 1-3 H Ur Epithelial Cells (NONE,FEW) RARE Urine Bacteria (NEG/NONE) FEW H Granular Casts (NONE /LPF) 1-3 H Urine Mucus (FEW,NONE) FEW Urine Hemoglobin (NEG) LARGE H Urine Glucose (N MG/DL) NEG Vital Signs Date Time Temp Pulse Resp B/P B/P Pulse O2 O2 Flow FiO2 Mean Ox Delivery Rate 11/04 0910 100.5 11/04 0910 100.5 101 150/80 11/04 0600 99.8 101 20 150/80 92 Room Air /07 0000 CPAP 11/03 2350 98.9 77 20 140/80 92 Room Air 11/03 2104 84 150/80 11/03 2045 101.5 11/03 1953 98 Room Air Room Air 11/03 1945 102.0 11/03 1526 100.3
[2016-11-04 16:58] LABS: PT 17.1 SEC (9.4-12.5)
[2016-11-04 17:00] VITALS: BP 130/60
[2016-11-04 20:50] VITALS: BP 138/96
[2016-11-04 23:00] VITALS: BP 142/78
--- NOTE | 2016-11-05 06:59 | PN- Housestaff ---
Subjective Follow-up For: - Fever associated with chills - Elevated liver enzymes - Paroxysmal atrial fibrillation Tele-Events Since Last Visit: NSR, no events overnight Subjective: Patient seen and examined at [facility]. His Tmax within past 24 hrs was 102.F. Denies chest pain, shortness of breath, nausea, vo mitning, abdominal pain. 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 Review of Systems Constitutional: Reports: fever. Denies: diaphoresis, weakness. EENTM: Denies: visual changes. Cardiovascular: Denies: edema, orthopena, palpitations. Respiratory: Reports: cough. Denies: hemoptysis, orthopnea, short of breath, wheezing. Gastrointestinal: Denies: abdominal pain, bloating, constipation, diarrhea, nausea, vomiting. Genitourinary: Reports: no symptoms. Musculoskeletal: Reports: no symptoms. Neurological/Psychological: Denies: headache, numbness, tingling, tremors. Objective Last 24 Hrs of Vital Signs/I&O Vital Signs Date Time Temp Pulse Resp B/P B/P Pulse O2 O2 Flow FiO2 Mean Ox Delivery Rate 11/05 0633 100.3 11/05 0000 94 CPAP 11/04 2300 98.7 78 18 142/78 92 CPAP 11/04 2054 99.7 11/04 2053 99.7 11/05 2051 82 138/96 11/04 2049 82 20 138/96 94 Room Air 11/04 1830 98 130/60 11/04 1801 100.2 11/04 1800 100.2 11/04 1702 102.1 11/04 1700 102.6 98 20 130/60 93 Room Air 11/04 1658 102.1 11/04 0910 100.5 11/04 0910 100.5 101 150/80 Intake & Output 11/05 0800 11/05 0000 11/04 1600 Intake Total 840 500 Output Total Balance 840 500 Intake, Oral 840 500 Physical Exam General Appearance: Alert, Oriented X3, Cooperative, No Acute Distress HEENT: Atraumatic, PERRLA, EOMI, Mucous Membr. moist/pink Neck: Supple, No JVD, No thryomegaly, +2 Carotid Pulse wo Bruit, No LAD Cardiovascular: Normal S1, Normal S2, No Murmurs Lungs: Clear to Auscultation, Normal Air Movement Abdomen: Normal Bowel Sounds, Soft, No Tenderness, No Hepatospenomegaly, No Masses Neurological: Normal Speech, Strength at 5/5 X4 Ext, Normal Tone, Sensation Intact, Cranial Nerves 3-12 NL, Reflexes 2+ Extremities: No Clubbing, No Cyanosis, No Edema, Normal Pulses, No Tenderness/ Swelling Vascular: Normal Pulses, Pulses Symmetrical Current Medications: Current Medications Sig/Luba Start time Last Medication Dose Route Stop Time Status Admin Acetaminophen 650 MG .STK-MED ONE 11/04 2054 DC PO 11/05 2055 Acetaminophen 650 MG .STK-MED ONE 11/04 1701 DC PO 11/04 1702 Acetaminophen 650 MG .STK-MED ONE 11/04 0909 DC PO 11/04 09 Acetaminophen 650 MG Q4P PRN 11/03 1230 DC 11/04 PO 2053 Albuterol Sulfate 3 ML Q4P PRN 11/03 1600 AC INH Apixaban 5 MG BID 11/02 2200 AC 11/04 PO 2051 Doxycycline Hyclate 100 MG 0600,1800 11/04 0600 AC 11/05 PO 06 Ibuprofen 600 MG Q6P PRN 11/05 0630 AC 11/05 PO 0633 Losartan Potassium 100 MG DAILY 11/04 1530 AC 11/04 PO 1830 Losartan Potassium 100 MG DAILY 11/04 1133 DC PO Metoprolol Tartrate 12.5 MG BID 11/03 1100 AC 11/04 PO 2051 Last 24 Hrs of Lab/Garret Results Last 24 Hrs of Labs/Mics: Laboratory Tests 11/04/16 1550: PT 17.1 H, INR 1.64 H 11/04/16 0710: Anion Gap 10, Estimated GFR > 60, BUN/Creatinine Ratio 18.8, Total Bilirubin 2.8 H, Direct Bilirubin 2.1 H, AST 130 H, ALT 187 H, Alkaline Phosphatase 327 H , Total Protein 5.8 L, Albumin 3.1 L, CBC w Diff MAN DIFF ORDERED, RBC 3.78 L , MCV 87.9, MCH 29.3, RDW 13.6, MPV 8.4, Gran % 83.2 H, Lymphocytes % 8.7 L, Monocytes % 7.9, Eosinophils % 0.1, Basophils % 0.1, Absolute Granulocytes 7.5 H, Segmented Neutrophils 71, Band Neutrophils 14 H, Absolute Lymphocytes 0.8 L , Lymphocytes 9 L, Monocytes 6, Absolute Monocytes 0.7 H, Absolute Eosinophils 0, Absolute Basophils 0, Normocytic RBCs VERIFIED, Normochromic RBCs VERIFIED, PUBS MCHC 33.3 Assessment/Plan Assessment: Mr. Robles is a 66-year-old male with a past medical history of pericarditis( dx'ed 2016), A. fib on DOAC, HTN, HLD, and SYEDA who is being evaluated for fevers, chills, fatigue, and fever 4 days. At the time of admission, temperature 1 or 2.5, pulse rate 100, respiration 20, blood pressure 152/85, was ox 94% on room air. Lab findings indicated no leukocytosis, WBC 7.5, hemoglobin 13.4, MCV 88, electrolytes-sodium 134, potassium 3.4 (replenish), bicarbonate 29, BUN 16, serum creatinine 0.9 (normal renal function), lactic acid 2.1, abnormal liver panel-total bilirubin 1.5, direct bilirubin 1.0, GGT 506, AST 199, ALT 25, alkaline phosphatase 228 (likely indicates cholestasis/biliary tree involvement), cardiac enzymes-0.02, 0.03. Lyme serology 1.88. (Apparently elevated as per the lab result report), Lyme antibodies-Western blotting looking for several IgG is pending at this time. West Nile virus IgG and IgM antibody-pending. Hepatitis panel negative. Anaplasmosis, Ehrlichia DNA-pending. Urinalysis revealed elevated urine protein about 100, urobilinogen positive, urine urobilinogen elevated, urine leukocyte esterase negative, Radiological findings-chest x-ray revealed retrocardiac opacity likely atelectasis/pneumonia. CT scan abdomen and pelvis-was unremarkable, did not reveal any acute intra-abdominal processes. Ultrasound abdomen did not reveal any sonographic findings suggestive of cholelithiasis or cholecystitis or biliary tract obstruction. Echocardiogram revealed ejection fraction between 60-65%, with no obvious regional wall motion abnormalities. No significant valvular abnormalities were noted. Differential diagnosis: #1 Lyme disease #2 acalculous cholecystitis 1. Shortness of breath- etiology unclear. Initial working diagnosis, was community-acquired pneumonia. The patient was started on ceftriaxone and azithromycin, which are currently discontinued. Ruled out for acute coronary syndrome. #2 Fever-Lyme titer positive. Continues to have fever, and is on doxycycline. Peripheral smear did not show any abnormal RBCs and or neutrophils, however, PCR positive for Babesiosis. Will start him on Atovaquone 750mg BID and Azithromycin 500mg x1 today with 250mg BID PO satrting tomorrow for 7-10 days. Await results from Western blot-Lyme's test, Anaplasma PCR, West Nile. Considering the season, and symptoms need to rule out West nile PCR. 2. Elevated liver enzymes: u hepatic panel. Elevated liver enzymes, particularly increasing alkaline phosphatase and GGT makes be any cause more likely. The patient has any signs of symptoms of cholangitis, would be worthwhile to get an MRCP. F/U LFTs. #3 hypertension-vital stable at this time. Continue home dose of metoprolol and restart ARB. Consider adding amlodipine 5mg daily if BP conitnues to remain eleavted,. Problem List: 1. Transaminitis 2. HTN (hypertension) Pain Ratin Pain Location: n/a Pain Goal: Remain pain free Pain Plan: switch him to Ibuprofen given transaminitis Tomorrow's Labs & Rationales: beo - Serum creatinine, H&H, and Platelet count, and LFTs
[2016-11-05 07:42] VITALS: BP 162/98
[2016-11-05 08:17] LABS: ABSOLUTE BASOPHIL COUNT 0 /CUMM (0.0-0.2); ABSOLUTE EOSINOPHIL COUNT 0 /CUMM (0.0-0.7); ABSOLUTE GRANULOCYTE CT 7.7 /CUMM (1.4-6.5); ABSOLUTE LYMPH COUNT 0.8 /CUMM (1.2-3.4); ABSOLUTE MONOCYTE COUNT 0.7 /CUMM (0.10-0.60); BASOPHIL % 0 % (0.0-2.0); EOSINOPHIL % 0.4 % (0-5); GRANULOCYTE % 83.2 % (42.2-75.2); HEMATOCRIT 33.6 % (42-52); MEAN CORPUSCULAR HGB 29.3 PG (27.0-31.0); MEAN CORPUSCULAR HGB CONC 33.5 G/DL (33.0-37.0); MEAN CORPUSCULAR VOLUME 87.5 FL (80.0-94.0); MEAN PLATELET VOLUME 8.2 FL (7.4-10.4); PLATELET COUNT 229 /CUMM (130-400); RBC DISTRIBUTION WIDTH 14.1 % (11.5-14.5); RED BLOOD CELL CT 3.84 /CUMM (4.70-6.10); WHITE BLOOD CELL COUNT 9.2 /CUMM (4.8-10.8)
[2016-11-05 10:56] LABS: PT 16.3 SEC (9.4-12.5)
--- NOTE | 2016-11-05 14:41 | PN- Att Addend ---
Attending Addendum Attending Brief Note Covering attending note Patient sitting in the chair and getting some coughing fits but in no respiratory distress temp max was 100.3 his O2 saturation 92% using his BiPAP at night had no other major changes on physical to continue present treatment, and respiratory treatments Intake & Output 11/05 1600 11/05 0800 11/05 0000 11/04 1600 11/04 0800 11/04 0000 Intake Total 600 840 500 300 Output Total Balance 600 840 500 300 Intake, Oral 600 840 500 300 Current Medications Sig/Luba Start time Last Medication Dose Route Stop Time Status Admin Acetaminophen 650 MG .STK-MED ONE 11/04 2054 DC PO 11/05 2055 Acetaminophen 650 MG .STK-MED ONE 11/04 170 DC PO 11/04 170 Acetaminophen 650 MG Q4P PRN 11/03 1230 DC 11/04 PO 205 Albuterol Sulfate 3 ML Q4P PRN 11/03 1600 AC INH Apixaban 5 MG BID 11/02 2200 AC 11/05 PO 1058 Atovaquone 750 MG BID 11/05 1000 AC 11/05 PO 1127 Azithromycin 250 MG DAILY 11/06 1000 AC PO Azithromycin 500 MG ONCE ONE 11/05 0945 DC 11/05 PO 11/05 0946 1059 Doxycycline Hyclate 100 MG 0600,1800 11/04 0600 AC 11/05 PO 0617 Guaifenesin 10 ML Q6P PRN 11/05 1015 AC PO Ibuprofen 600 MG Q6P PRN 11/05 0630 AC 11/05 PO 0633 Losartan Potassium 100 MG DAILY 11/04 1530 AC 11/05 PO 1058 Metoprolol Tartrate 12.5 MG BID 11/03 1100 AC 11/05 PO 1058 Laboratory Tests 11/05/16 0840: PT 16.3 H, INR 1.56 H 11/05/16 0652: Anion Gap 10, Estimated GFR > 60, BUN/Creatinine Ratio 15.7, Total Bilirubin 2.8 H, Direct Bilirubin 2.0 H, AST 128 H, ALT 192 H, Alkaline Phosphatase 393 H , Total Protein 5.9 L, Albumin 3.1 L, CBC w Diff NO MAN DIFF REQ, RBC 3.84 L, MCV 87.5, MCH 29.3, RDW 14.1, MPV 8.2, Gran % 83.2 H, Lymphocytes % 9.0 L, Monocytes % 7.4, Eosinophils % 0.4, Basophils % 0 L, Absolute Granulocytes 7.7 H, Absolute Lymphocytes 0.8 L, Absolute Monocytes 0.7 H, Absolute Eosinophils 0, Absolute Basophils 0, [facility] MCHC 33.5 11/04/16 1550: PT 17.1 H, INR 1.64 H 11/04/16 0710: Anion Gap 10, Estimated GFR > 60, BUN/Creatinine Ratio 18.8, Total Bilirubin 2.8 H, Direct Bilirubin 2.1 H, AST 130 H, ALT 187 H, Alkaline Phosphatase 327 H , Total Protein 5.8 L, Albumin 3.1 L, CBC w Diff MAN DIFF ORDERED, RBC 3.78 L , MCV 87.9, MCH 29.3, RDW 13.6, MPV 8.4, Gran % 83.2 H, Lymphocytes % 8.7 L, Monocytes % 7.9, Eosinophils % 0.1, Basophils % 0.1, Absolute Granulocytes 7.5 H, Segmented Neutrophils 71, Band Neutrophils 14 H, Absolute Lymphocytes 0.8 L , Lymphocytes 9 L, Monocytes 6, Absolute Monocytes 0.7 H, Absolute Eosinophils 0, Absolute Basophils 0, Normocytic RBCs VERIFIED, Normochromic RBCs VERIFIED, PSYCHIATRIC 33.3 11/04/16 0600: West Nile Virus IgG Ab Pending, West Nile Virus IgM Ab Pending 11/03/16 1700: Urinalysis LIGHT H, Urine Color ORANG H, Urine Clarity HAZY H, Urine pH 6.0, Ur Specific [place] 1.025, Urine Protein 100 H, Urine Ketones NEG, Urine Nitrite NEG, Urine Bilirubin POS@ICTO H, Urine Urobilinogen 2.0 H, Ur Leukocyte Esterase NEG, Ur Microscopic SEDIMENT EXAMINED, Urine RBC >75 H, Urine WBC 1-3 H, Ur Epithelial Cells RARE, Urine Bacteria FEW H, Granular Casts 1-3 H, Urine Mucus FEW, Urine Hemoglobin LARGE H, Urine Glucose NEG Microbiology 11/03 1699 URINE ROUT: Legionella Antigen - COMP 11/03 1699 URINE ROUT: Streptococcus pneumoniae Antigen (M - COMP 11/03 1699 URINE ROUT: Urine Culture - COMP Vital Signs Date Time Temp Pulse Resp B/P B/P Pulse O2 O2 Flow FiO2 Mean Ox Delivery Rate 11/05 1200 92 Room Air 11/05 1058 162/98 07/08 1058 162/98 07/08 0742 98.9 80 20 162/98 93 Room Air 07/08 0633 100.3 07/08 0000 94 CPAP 07/07 2300 98.7 78 18 142/78 92 CPAP 07/07 2055 99.7 07/07 2054 99.7 07/07 205 82 138/96 07/07 2050 82 20 138/96 94 Room Air 07/07 1830 98 130/60 07/07 1801 100.2 07/07 1800 100.2 07/07 1702 102.1 07/07 1700 102.6 98 20 130/60 93 Room Air 07/07 1658 102.1
[2016-11-05 15:13] VITALS: BP 152/80
[2016-11-05 22:39] VITALS: BP 162/98
[2016-11-06 03:10] VITALS: BP 156/90
[2016-11-06 07:12] VITALS: BP 177/93
--- NOTE | 2016-11-06 07:49 | PN- Infect Dx ---
Subjective Subjective: MAXIMUM TEMPERATURE 100.3. He complains of cough spasms, preventing him from taking deep breaths, and a left-sided headache. Objective Last 24 Hrs of Vital Signs/I&O Vital Signs Date Time Temp Pulse Resp B/P B/P Pulse O2 O2 Flow FiO2 Mean Ox Delivery Rate 11/07 711 99.7 74 18 177/93 93 Room Air 11/06 0310 99.2 80 156/90 07/ 0000 96 CPAP 11/05 2239 98.2 80 18 162/98 93 Room Air 11/05 2127 76.0 160/88 11/05 1513 98.1 70 18 152/80 92 Room Air 11/05 1200 92 Room Air 11/05 1058 162/98 11/05 1058 162/98 Intake & Output 11/06 0800 11/06 0000 11/05 1600 Intake Total 850 600 Output Total Balance 850 600 Intake, Oral 850 600 Physical Exam Other Physical Findings: He appears uncomfortable but in no acute distress Lungs are clear with decreased breath sounds bilaterally Heart regular rhythm with no murmur Abdomen is soft, nontender with positive bowel sounds Extremities no cyanosis, clubbing or edema Results Last 24 Hours of Lab Results: Laboratory Tests 11/06 11/05 0656 0840 Chemistry Sodium Pending Potassium Pending Chloride Pending Carbon Dioxide Pending Anion Gap Pending BUN Pending Creatinine Pending BUN/Creatinine Ratio Pending Total Bilirubin Pending Direct Bilirubin Pending AST Pending ALT Pending Alkaline Phosphatase Pending Total Protein Pending Albumin Pending Coagulation PT (9.4 - 12.5 SEC) 16.3 H INR (0.90 - 1.17) 1.56 H Hematology CBC w Diff Pending WBC Pending RBC Pending Hgb Pending Hct Pending MCV Pending MCH Pending RDW Pending Plt Count Pending MPV Pending PUBS MCHC Pending PCR for Babesia positive PCR for Anaplasma negative Lyme enzyme immunoassay negative, but Western blot pending Last 24 Hours of Garret Results: Blood cultures 2 November 02 negative Urine culture November 03 negative Assessment/Plan Impression: Fevers appear to have resolved even prior to initiation of 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 His cough and headache are likely secondary to Babesiosis and appear to be more bothersome than previously. He remains on Doxycycline Day 4 for possible coinfection with Lyme disease, with Western blot pending, though the immunoassay test was negative. Suggestion: 1. Symptomatic treatment of his cough 2. Follow-up Lyme Western blot 3. Continue Azithromycin and Atovaquone 4. Continue Doxycycline
[2016-11-06 08:03] LABS: ABSOLUTE BASOPHIL COUNT 0 /CUMM (0.0-0.2); ABSOLUTE EOSINOPHIL COUNT 0.1 /CUMM (0.0-0.7); ABSOLUTE GRANULOCYTE CT 6.9 /CUMM (1.4-6.5); ABSOLUTE LYMPH COUNT 0.9 /CUMM (1.2-3.4); ABSOLUTE MONOCYTE COUNT 0.7 /CUMM (0.10-0.60); BASOPHIL % 0 % (0.0-2.0); EOSINOPHIL % 1.7 % (0-5); GRANULOCYTE % 79.3 % (42.2-75.2); HEMATOCRIT 34.5 % (42-52); MEAN CORPUSCULAR HGB 29.1 PG (27.0-31.0); MEAN CORPUSCULAR HGB CONC 33.2 G/DL (33.0-37.0); MEAN CORPUSCULAR VOLUME 87.9 FL (80.0-94.0); MEAN PLATELET VOLUME 7.8 FL (7.4-10.4); PLATELET COUNT 322 /CUMM (130-400); RBC DISTRIBUTION WIDTH 14.5 % (11.5-14.5); RED BLOOD CELL CT 3.92 /CUMM (4.70-6.10); WHITE BLOOD CELL COUNT 8.8 /CUMM (4.8-10.8)
--- NOTE | 2016-11-06 08:54 | PN- Housestaff ---
Subjective Follow-up For: - Fever associated with chills - Elevated liver enzymes - Paroxysmal atrial fibrillation Complaints: no complaints Tele-Events Since Last Visit: NSR 73-80 PACs no events Subjective: Patient was examined bedside, complained of a headache last night and had a low grade temperature - was given an ice pack and motrin. He was given robutussin last night around 4am, had a coughing fit. he complains now of feeling warm all over and coughing spells. Review of Systems Constitutional: Reports: diaphoresis, weakness. Denies: chills. EENTM: Reports: no symptoms. Cardiovascular: Denies: chest pain, syncope. Respiratory: Reports: cough. Denies: short of breath. Gastrointestinal: Reports: no symptoms. Genitourinary: Reports: no symptoms. Musculoskeletal: Reports: no symptoms. Skin: Reports: no symptoms. Neurological/Psychological: Reports: no symptoms. Hematologic/Endocrine: Reports: no symptoms. Objective Last 24 Hrs of Vital Signs/I&O Vital Signs Date Time Temp Pulse Resp B/P B/P Pulse O2 O2 Flow FiO2 Mean Ox Delivery Rate 11/06 1422 94 Room Air Room Air 11/06 0900 Room Air 11/06 0819 99.7 11/06 0819 74 177/93 11/06 0819 74 177/93 11/06 0712 99.7 74 18 177/93 93 Room Air 11/06 0310 99.2 80 156/90 07/ 0000 96 CPAP 11/05 2239 98.2 80 18 162/98 93 Room Air 11/05 2127 76.0 160/88 Intake & Output 11/06 1600 11/06 0800 11/06 0000 Intake Total 850 600 Output Total Balance 850 600 Intake, Oral 850 600 Physical Exam General Appearance: Alert, Oriented X3, Cooperative, No Acute Distress Skin: No Rashes, No Breakdown, No Significant Lesion Skin Temp/Moisture Exam: Hot/Diaphoretic HEENT: Atraumatic, PERRLA, EOMI, Mucous Membr. moist/pink Neck: No JVD Cardiovascular: Regular Rate, Normal S1, Normal S2, No Murmurs, Gallops, Rubs Lungs: Clear to Auscultation (rhonchi throughout) Abdomen: Normal Bowel Sounds, Soft, No Tenderness, No Hepatospenomegaly, No Masses Neurological: Normal Speech Extremities: No Clubbing, No Cyanosis, No Edema, Normal Pulses, No Tenderness/ Swelling Vascular: Normal Pulses, Pulses Symmetrical Sepsis Peripheral Pulse Location: Radial Sepsis Peripheral Pulse Exam: Normal Current Medications: Current Medications Sig/Luba Start time Last Medication Dose Route Stop Time Status Admin Acetaminophen 650 MG Q6P PRN 11/05 2100 CAN PO Acetaminophen/ 1 TAB Q6P PRN 11/05 2100 CAN Hydrocodone Bitart PO Albuterol Sulfate 3 ML Q4P PRN 11/03 1600 AC 11/06 INH 1411 Apixaban 5 MG BID 11/02 2200 AC 11/06 PO 0819 Atovaquone 750 MG BID 11/05 1000 AC 11/06 PO 0820 Azithromycin 250 MG DAILY 11/06 1000 AC 11/06 PO 0818 Doxycycline Hyclate 100 MG 0600,1800 11/04 0600 AC 11/06 PO 0613 Guaifenesin 10 ML .STK-MED ONE 11/06 0324 DC PO 11/06 0325 Guaifenesin 10 ML Q6P PRN 11/05 1015 AC 11/06 PO 1409 Hydrochlorothiazide 25 MG DAILY 11/06 1237 AC 11/06 PO 1407 Ibuprofen 600 MG Q6P PRN 11/05 0630 AC 11/06 PO 0819 Losartan Potassium 100 MG DAILY 11/04 1530 AC 11/06 PO 0819 Metoprolol Tartrate 12.5 MG BID 11/03 1100 AC 11/06 PO 0819 Morphine Sulfate 2 MG Q4P PRN 11/05 2100 CAN IV Last 24 Hrs of Lab/Garret Results Last 24 Hrs of Labs/Mics: Laboratory Tests 11/06/16 0656: Anion Gap 9, Estimated GFR > 60, BUN/Creatinine Ratio 18.8, Total Bilirubin 2.0 H, Direct Bilirubin 1.3 H, AST 166 H, ALT 242 H, Alkaline Phosphatase 474 H, Total Protein 6.0 L, Albumin 3.2 L, CBC w Diff NO MAN DIFF REQ, RBC 3.92 L, MCV 87.9, MCH 29.1, RDW 14.5, MPV 7.8, Gran % 79.3 H, Lymphocytes % 10.6 L, Monocytes % 8.4, Eosinophils % 1.7, Basophils % 0 L, Absolute Granulocytes 6.9 H, Absolute Lymphocytes 0.9 L, Absolute Monocytes 0.7 H, Absolute Eosinophils 0.1, Absolute Basophils 0, PUBS MCHC 33.2 Assessment/Plan Assessment: Mr. Robles is a 66-year-old male with a past medical history of pericarditis, A. fib on DOAC, HTN, HLD, and SYEDA who is being evaluated for fevers, chills, fatigue, and fever 5 days. Lactic acid 2.1, abnormal liver panel-total bilirubin 1.5, direct bilirubin 1.0, GGT 506, AST 199, ALT 25, alkaline phosphatase 228 (likely indicates cholestasis /biliary tree involvement) Lyme serology 1.88. IgG is pending at this time. West Nile virus IgG and IgM antibody-pending. Hepatitis panel negative. Anaplasmosis, Ehrlichia DNA- pending. Urinalysis revealed elevated urine protein about 100, urobilinogen positive, urine urobilinogen elevated, urine leukocyte esterase negative. TEMP MAX 99.7. BLOOD CULTURES URINE CULTURES NEGATIVE 1. Shortness of breath pneumonia legionella urinary antigen positive and strep pneumo urinary antigen positive. The patient was started on ceftriaxone and azithromycin, ceftriaxone discontinued. Ruled out for acute coronary syndrome. wbc 8.8 #2 Fever-Lyme titer positive. Continues to have fever, and is on doxycycline. Peripheral smear did not show any abnormal RBCs and or neutrophils, however, PCR positive for Babesiosis. continue Atovaquone 750mg BID for babesiosis and Azithromycin for pna 250mg BID PO for 7-10 days. Await results from Western blot -Lyme's test, Anaplasma PCR, West Nile. Considering the season, and symptoms need to rule out West nile PCR. 3. Elevated liver enzymes: HEP PANEL NEGATIVE. His liver enzymes remain elevated, alk phosphatase increasing, though his AST and ALT AND BILIRUBIN are decreasing, but he has no GI symptoms and his CT of the abdomen and pelvis and right upper quadrant ultrasound were negative. Further imaging, for example with MRCP, could be considered if his liver enzymes continue to increase, though the yield is likely to be low. The patient has NO signs of symptoms of cholangitis, would be worthwhile to get an MRCP. F/U LFTs. #4 hypertension-vital stable at this time. Continue home dose of metoprolol and restarted losartan. BPs still high so HCTZ started. currrently 140/82 #5Afib on DOAC eloquis Problem List: 1. Full code status 2. Shortness of breath 3. Transaminitis 4. Pneumonia 5. HTN (hypertension) 6. Lyme disease 7. Babesiosis 8. Atrial fibrillation Pain Ratin Pain Location: NA Pain Goal: Remain pain free Pain Plan: NA Tomorrow's Labs & Rationales: BEP LFT FOLLOW LYME SEROLOGIES
--- NOTE | 2016-11-06 15:20 | PN- Att Addend ---
Attending Addendum Attending Brief Note Covering attending note: Patient feeling a little better today still having some coughing spasms and a headache, the cough is a little better after breathing treatment and cough medicine patient is in no respiratory distress sitting in the chair using his laptop, vital signs are stable, MAXIMUM TEMPERATURE 99.7. Appreciate Dr. Marie input and recommendations today western block is pending patient being treated for Babesiosis and presumed Lyme disease patient continues on doxycycline with no new changes on physical 24 TOTALS 11/06 0000 11/05 0000 Intake Total 1200 1340 Output Total Balance 1200 1340 Intake, Oral 1200 1340 Current Medications Sig/Luba Start time Last Medication Dose Route Stop Time Status Admin Acetaminophen 650 MG Q6P PRN 11/05 2100 CAN PO Acetaminophen/ 1 TAB Q6P PRN 11/05 2100 CAN Hydrocodone Bitart PO Albuterol Sulfate 3 ML Q4P PRN 11/03 1600 AC 11/06 INH 1411 Apixaban 5 MG BID 11/02 2200 AC 11/06 PO 0819 Atovaquone 750 MG BID 11/05 1000 AC 11/06 PO 0820 Azithromycin 250 MG DAILY 11/06 1000 AC 11/06 PO 0818 Doxycycline Hyclate 100 MG 0600,1800 11/04 0600 AC 11/06 PO 0613 Guaifenesin 10 ML .STK-MED ONE 11/06 0324 DC PO 11/06 0325 Guaifenesin 10 ML Q6P PRN 11/05 1015 AC 11/06 PO 1409 Hydrochlorothiazide 25 MG DAILY 11/06 1237 AC 11/06 PO 1407 Ibuprofen 600 MG Q6P PRN 11/05 0630 AC 11/06 PO 0819 Losartan Potassium 100 MG DAILY 11/04 1530 AC 11/06 PO 0819 Metoprolol Tartrate 12.5 MG BID 11/03 1100 AC 11/06 PO 0819 Morphine Sulfate 2 MG Q4P PRN 11/05 2100 CAN IV Laboratory Tests 11/06/16 0656: Anion Gap 9, Estimated GFR > 60, BUN/Creatinine Ratio 18.8, Total Bilirubin 2.0 H, Direct Bilirubin 1.3 H, AST 166 H, ALT 242 H, Alkaline Phosphatase 474 H, Total Protein 6.0 L, Albumin 3.2 L, CBC w Diff NO MAN DIFF REQ, RBC 3.92 L, MCV 87.9, MCH 29.1, RDW 14.5, MPV 7.8, Gran % 79.3 H, Lymphocytes % 10.6 L, Monocytes % 8.4, Eosinophils % 1.7, Basophils % 0 L, Absolute Granulocytes 6.9 H, Absolute Lymphocytes 0.9 L, Absolute Monocytes 0.7 H, Absolute Eosinophils 0.1, Absolute Basophils 0, PUBS MCHC 33.2 11/05/16 0840: PT 16.3 H, INR 1.56 H 11/05/16 0652: Anion Gap 10, Estimated GFR > 60, BUN/Creatinine Ratio 15.7, Total Bilirubin 2.8 H, Direct Bilirubin 2.0 H, AST 128 H, ALT 192 H, Alkaline Phosphatase 393 H , Total Protein 5.9 L, Albumin 3.1 L, CBC w Diff NO MAN DIFF REQ, RBC 3.84 L, MCV 87.5, MCH 29.3, RDW 14.1, MPV 8.2, Gran % 83.2 H, Lymphocytes % 9.0 L, Monocytes % 7.4, Eosinophils % 0.4, Basophils % 0 L, Absolute Granulocytes 7.7 H, Absolute Lymphocytes 0.8 L, Absolute Monocytes 0.7 H, Absolute Eosinophils 0, Absolute Basophils 0, PUBS MCHC 33.5 11/04/16 1550: PT 17.1 H, INR 1.64 H
[2016-11-06 15:43] VITALS: BP 140/82
[2016-11-06 22:28] VITALS: BP 170/98
[2016-11-07 00:52] VITALS: BP 150/100
--- NOTE | 2016-11-07 05:36 | PN- Housestaff ---
Subjective Follow-up For: - Babesiosis Review of Systems Constitutional: Reports: see HPI. Objective Last 24 Hrs of Vital Signs/I&O Vital Signs Date Time Temp Pulse Resp B/P B/P Pulse O2 O2 Flow FiO2 Mean Ox Delivery Rate 11/07 0052 150/100 11/07 2227 95 Room Air 11/06 222 98.2 63 18 170/98 95 Room Air 11/06 2224 63 170/98 11/06 1543 97.9 68 18 140/82 92 Room Air 11/06 1422 94 Room Air Room Air 11/06 0900 Room Air 11/06 0819 99.7 11/06 0819 74 177/93 11/06 0819 74 177/93 11/06 0712 99.7 74 18 177/93 93 Room Air Intake & Output 11/07 0800 11/07 0000 11/06 1600 Intake Total 600 Output Total Balance 600 Intake, Oral 600 Physical Exam General Appearance: Alert Current Medications: Current Medications Sig/Luba Start time Last Medication Dose Route Stop Time Status Admin Albuterol Sulfate 3 ML Q4P PRN 11/03 1600 AC 11/06 INH 1411 Apixaban 5 MG BID 11/02 2200 AC 11/06 PO 2220 Atovaquone 750 MG BID 11/05 1000 AC 11/06 PO 2220 Azithromycin 250 MG DAILY 11/06 1000 AC 11/06 PO 0818 Doxycycline Hyclate 100 MG 0600,1800 11/04 0600 AC 11/06 PO 1708 Guaifenesin 10 ML .STK-MED ONE 11/06 1410 DC PO 11/06 1411 Guaifenesin 10 ML Q6P PRN 11/05 1015 AC 11/06 PO 1409 Hydrochlorothiazide 25 MG DAILY 11/06 1237 AC 11/06 PO 1407 Ibuprofen 600 MG .STK-MED ONE 11/06 0818 DC PO 11/06 0819 Ibuprofen 600 MG Q6P PRN 11/05 0630 AC 11/06 PO 0819 Losartan Potassium 100 MG DAILY 11/04 1530 AC 11/06 PO 0819 Metoprolol Tartrate 12.5 MG BID 11/03 1100 AC 11/06 PO 2224 Last 24 Hrs of Lab/Garret Results Last 24 Hrs of Labs/Mics: Laboratory Tests 11/06/16 0656: Anion Gap 9, Estimated GFR > 60, BUN/Creatinine Ratio 18.8, Total Bilirubin 2.0 H, Direct Bilirubin 1.3 H, AST 166 H, ALT 242 H, Alkaline Phosphatase 474 H, Total Protein 6.0 L, Albumin 3.2 L, CBC w Diff NO MAN DIFF REQ, RBC 3.92 L, MCV 87.9, MCH 29.1, RDW 14.5, MPV 7.8, Gran % 79.3 H, Lymphocytes % 10.6 L, Monocytes % 8.4, Eosinophils % 1.7, Basophils % 0 L, Absolute Granulocytes 6.9 H, Absolute Lymphocytes 0.9 L, Absolute Monocytes 0.7 H, Absolute Eosinophils 0.1, Absolute Basophils 0, PUBS MCHC 33.2 Assessment/Plan Assessment: Mr. Robles is a 66-year-old male with a past medical history of pericarditis, A. fib on DOAC, HTN, HLD, and SYEDA who is being evaluated for fevers, chills, fatigue, and fever 5 days. Lactic acid 2.1, abnormal liver panel-total bilirubin 1.5, direct bilirubin 1.0, GGT 506, AST 199, ALT 25, alkaline phosphatase 228 (likely indicates cholestasis /biliary tree involvement) Lyme serology 1.88. IgG is pending at this time. West Nile virus IgG and IgM antibody-pending. Hepatitis panel negative. Anaplasmosis, Ehrlichia DNA- pending. Urinalysis revealed elevated urine protein about 100, urobilinogen positive, urine urobilinogen elevated, urine leukocyte esterase negative. TEMP MAX 99.7. BLOOD CULTURES URINE CULTURES NEGATIVE 1. Shortness of breath pneumonia legionella urinary antigen positive and strep pneumo urinary antigen positive. The patient was started on ceftriaxone and azithromycin, ceftriaxone discontinued. Ruled out for acute coronary syndrome. wbc 8.8 #2 Fever-Lyme titer positive. Continues to have fever, and is on doxycycline. Peripheral smear did not show any abnormal RBCs and or neutrophils, however, PCR positive for Babesiosis. continue Atovaquone 750mg BID for babesiosis and Azithromycin for pna 250mg BID PO for 7-10 days. Await results from Western blot -Lyme's test, Anaplasma PCR, West Nile. Considering the season, and symptoms need to rule out West nile PCR. 3. Elevated liver enzymes: HEP PANEL NEGATIVE. His liver enzymes remain elevated, alk phosphatase increasing, though his AST and ALT AND BILIRUBIN are decreasing, but he has no GI symptoms and his CT of the abdomen and pelvis and right upper quadrant ultrasound were negative. Further imaging, for example with MRCP, could be considered if his liver enzymes continue to increase, though the yield is likely to be low. The patient has NO signs of symptoms of cholangitis, would be worthwhile to get an MRCP. F/U LFTs. #4 hypertension-vital stable at this time. Continue home dose of metoprolol and restarted losartan. BPs still high so HCTZ started. currrently 140/82 #5Afib on DOAC eloquis Problem List: 1. Atrial fibrillation 2. Babesiosis 3. Lyme disease Pain Ratin Pain Location: - Pain Goal: Pain 4 or less Pain Plan: tylenol prn Tomorrow's Labs & Rationales: cbc
[2016-11-07 07:19] VITALS: BP 148/100
[2016-11-07 09:36] LABS: ABSOLUTE BASOPHIL COUNT 0 /CUMM (0.0-0.2); ABSOLUTE EOSINOPHIL COUNT 0.3 /CUMM (0.0-0.7); ABSOLUTE GRANULOCYTE CT 6.7 /CUMM (1.4-6.5); ABSOLUTE LYMPH COUNT 0.9 /CUMM (1.2-3.4); ABSOLUTE MONOCYTE COUNT 0.8 /CUMM (0.10-0.60); BASOPHIL % 0.2 % (0.0-2.0); EOSINOPHIL % 3.7 % (0-5); HEMATOCRIT 35.9 % (42-52); MEAN CORPUSCULAR HGB 29.3 PG (27.0-31.0); MEAN CORPUSCULAR HGB CONC 33.4 G/DL (33.0-37.0); MEAN CORPUSCULAR VOLUME 87.9 FL (80.0-94.0); MEAN PLATELET VOLUME 7.5 FL (7.4-10.4); PLATELET COUNT 437 /CUMM (130-400); RBC DISTRIBUTION WIDTH 15.1 % (11.5-14.5); RED BLOOD CELL CT 4.08 /CUMM (4.70-6.10); WHITE BLOOD CELL COUNT 8.7 /CUMM (4.8-10.8)
[2016-11-07 10:32] VITALS: BP 150/90
--- NOTE | 2016-11-07 10:32 | PN- Att Addend ---
Attending Addendum Attending Brief Note Patient reports improved symptoms and he is currently fever free. General Appearance: Alert, No Acute Distress Skin: Grossly normal HEENT: PEERLA Neck: Supple, No JVD Cardiovascular: Regular Rate, Normal S1, Normal S2, No Murmurs Lungs: Clear to Auscultation, Normal Air Movement Abdomen: Normal Bowel Sounds, Soft, No Tenderness Neurological: Normal Speech, Strength at 5/5 X4 Ext, Cranial Nerves 3-12 NL, Reflexes 2+ Extremities: No Clubbing, No Cyanosis, No Edema Vascular: Normal Pulses Assessment Patient likely has coinfection with babesiosis and Lyme's. At this point Western blot is pending for Lyme disease. We will continue him on current regimen pending Western blot for Lyme's disease. He has mild elevation of troponins without EKG changes and is currently in sinus rhythm. This is likely demand ischemia. echocardiogram is negative. LFTs are trending down. Western blot is pending. Plan continue doxycycline, azithro and atovoqone Follow Lyme Western blot Repeat LFTs later this week Continue other home medications DC home Current Medications Sig/Luba Start time Last Medication Dose Route Stop Time Status Admin Albuterol Sulfate 3 ML Q4P PRN 11/03 1600 AC 11/06 INH 1411 Apixaban 5 MG BID 11/02 2200 AC 11/06 PO 2220 Atovaquone 750 MG BID 11/05 1000 AC 11/06 PO 2220 Azithromycin 250 MG DAILY 11/06 1000 AC 11/06 PO 0818 Doxycycline Hyclate 100 MG 0600,1800 11/04 0600 AC 11/07 PO 0609 Guaifenesin 10 ML .STK-MED ONE 11/06 1410 DC PO 11/06 1411 Guaifenesin 10 ML Q6P PRN 11/05 1015 AC 11/06 PO 1409 Hydrochlorothiazide 25 MG DAILY 11/06 1237 AC 11/06 PO 1407 Ibuprofen 600 MG Q6P PRN 11/05 0630 AC 11/06 PO 0819 Losartan Potassium 100 MG DAILY 11/04 1530 AC 11/06 PO 0819 Metoprolol Tartrate 12.5 MG BID 11/03 1100 AC 11/06 PO 2224 Laboratory Tests 11/07 0725 Chemistry Sodium (137 - 145 mmol/L) 140 Potassium (3.5 - 5.1 mmol/L) 4.3 Chloride (98 - 107 mmol/L) 102 Carbon Dioxide (22 - 30 mmol/L) 25 Anion Gap (5 - 16) 13 BUN (9 - 20 mg/dL) 13 Creatinine (0.7 - 1.2 mg/dL) 0.7 Estimated GFR (>60 ml/min) > 60 BUN/Creatinine Ratio (7 - 25 %) 18.6 Total Bilirubin (0.2 - 1.3 mg/dL) 1.5 H Direct Bilirubin (< 0.4 mg/dL) 0.9 H AST (17 - 59 U/L) 169 H ALT (21 - 72 U/L) 267 H Alkaline Phosphatase (< 127 U/L) 492 H Total Protein (6.3 - 8.2 g/dL) 6.3 Albumin (3.5 - 5.0 g/dL) 3.4 L Hematology CBC w Diff NO MAN DIFF REQ WBC (4.8 - 10.8 /CUMM) 8.7 RBC (4.70 - 6.10 /CUMM) 4.08 L Hgb (14.0 - 18.0 G/DL) 12.0 L Hct (42 - 52 %) 35.9 L MCV (80.0 - 94.0 FL) 87.9 MCH (27.0 - 31.0 PG) 29.3 RDW (11.5 - 14.5 %) 15.1 H Plt Count (130 - 400 /CUMM) 437 H MPV (7.4 - 10.4 FL) 7.5 Gran % (42.2 - 75.2 %) 77.0 H Lymphocytes % (20.5 - 51.1 %) 10.1 L Monocytes % (1.7 - 9.3 %) 9.0 Eosinophils % (0 - 5 %) 3.7 Basophils % (0.0 - 2.0 %) 0.2 Absolute Granulocytes (1.4 - 6.5 /CUMM) 6.7 H Absolute Lymphocytes (1.2 - 3.4 /CUMM) 0.9 L Absolute Monocytes (0.10 - 0.60 /CUMM) 0.8 H Absolute Eosinophils (0.0 - 0.7 /CUMM) 0.3 Absolute Basophils (0.0 - 0.2 /CUMM) 0 PUBS MCHC (33.0 - 37.0 G/DL) 33.4 Vital Signs Date Time Temp Pulse Resp B/P B/P Pulse O2 O2 Flow FiO2 Mean Ox Delivery Rate 11/07 718 98.2 73 18 148/100 93 Room Air 11/07 0052 150/100 11/06 2228 95 Room Air 11/06 2228 98.2 63 18 170/98 95 Room Air 11/06 2224 63 170/98 11/06 1543 97.9 68 18 140/82 92 Room Air 11/06 1422 94 Room Air Room Air
[2016-11-07] MEDS ORDERED: AZITHROMYCIN250 M1 PO ×2 (10:35→11:24)
[2016-11-07] MEDS ORDERED: MEPRON750 MG/51 PO ×3 (10:35→11:24)
[2016-11-07] MEDS ORDERED: DOXYCYCLINE HY100 M2 PO ×3 (10:35→11:24)
--- NOTE | 2016-11-07 10:39 | Patient Discharge Instructions ---
Discharge Instructions General Discharge Information You were seen/treated for: - tick fever Watch for these problems: - chest pain, shortness of breath - jaundice, abdominal pain - lightheadedness, dizziness Special Instructions: - please see your PCP within one week of discharge. - Please discuss with him about the results of the latest blood work for tick fever. - Please get your blood work done, BEP with liver panel on 11/12/16, Please copy the results to your PCP. Acute Coronary Syndrome Inclusion Criteria At DC or during hospital stay patient has or had the following: ACS DIAGNOSIS No Discharge Core Measures Meds if any: Prescribed or Continued at Discharge Meds if any: NOT Prescribed or Continued at Discharge Congestive Heart Failure Inclusion Criteria At DC or during hospital stay patient has or had the following: CHF DIAGNOSIS No Discharge Core Measures Meds if any: Prescribed or Continued at Discharge Meds if any: NOT Prescribed or Continued at Discharge Cerebrovascular accident Inclusion Criteria At DC or during hospital stay patient has or had the following: CVA/TIA Diagnosis No Discharge Core Measures Meds if any: Prescribed or Continued at Discharge Meds if any: NOT Prescribed or Continued at Discharge Venous thromboembolism Inclusion Criteria VTE Diagnosis No VTE Type NONE VTE Confirmed by (Test) NONE Discharge Core Measures - Per Current guidelines, there needs to be overlap - treatment for the first 5 days of Warfarin therapy. - If discharged on Warfarin prior to 5 days of - overlap therapy, the patient will need to be - assessed for post discharge needs including - *Post discharge parental anticoagulation - *Warfarin and/or parental anticoagulation education - *Follow up date to check INR post discharge At least 5 days overlap therapy as Inpatient No Meds if any: Prescribed or Continued at Discharge Note: Overlap Therapy is Warfarin and Anticoagulant Meds if any: NOT Prescribed or Continued at Discharge
--- NOTE | 2016-11-07 11:04 | PN- Cardiology ---
Subjective Subjective: The patient is awake, alert The events of the last 24 hours as well as telemetry were reviewed. Review of Systems: The review of systems is negative for chest pains, palpitations nor lightheadedness. The remainder of the 14 point review of systems is noncontributory with the exception of above. Objective Vital Signs and I&Os Vital Signs Date Time Temp Pulse Resp B/P B/P Pulse O2 O2 Flow FiO2 Mean Ox Delivery Rate 11/07 1034 94 Room Air Room Air 11/07 1032 150/90 11/07 1032 150/90 11/07 0719 98.2 73 18 148/100 93 Room Air 11/07 0052 150/100 11/06 2228 95 Room Air 11/06 2228 98.2 63 18 170/98 95 Room Air 11/06 2224 63 170/98 11/06 1543 97.9 68 18 140/82 92 Room Air 11/06 1422 94 Room Air Room Air Intake & Output 11/07 1600 11/07 0800 11/07 0000 11/06 1600 11/06 0800 11/06 0000 Intake Total 600 850 600 Output Total Balance 600 850 600 Intake, Oral 600 850 600 Physical Exam: General: Nontoxic, no apparent distress. HEENT: Sclera and conjunctiva within normal limits, without xanthelasmas. Neck: Carotids 2+ without bruits. Respiratory: Diffuse rhonchi, air movement is good, without accessory respiratory muscle use. Heart: Regular rate and rhythm, without murmurs, without JVD. Abdomen: Soft, nontender, no masses, normoactive bowel sounds. Extremities: Without clubbing, cyanosis, without edema. Neuro: Nonfocal exam, strength, 5 out of 5 Skin: Within normal limits without lesions. Psych: Mood and affect: Normal Current Medications: Current Medications Sig/L[place] Start time Last Medication Dose Route Stop Time Status Admin Albuterol Sulfate 3 ML Q4P PRN 11/03 1600 AC 11/06 INH 1411 Apixaban 5 MG BID 11/02 2200 AC 11/07 PO 1032 Atovaquone 750 MG BID 11/05 1000 AC 11/07 PO 1032 Azithromycin 250 MG DAILY 11/06 1000 AC 11/07 PO 1032 Doxycycline Hyclate 100 MG 0600,1800 11/04 0600 AC 11/07 PO 0609 Guaifenesin 10 ML .STK-MED ONE 11/06 1410 DC PO 11/06 1411 Guaifenesin 10 ML Q6P PRN 11/05 1015 AC 11/06 PO 1409 Hydrochlorothiazide 25 MG DAILY 11/06 1237 AC 11/07 PO 1032 Ibuprofen 600 MG Q6P PRN 11/05 0630 AC 11/06 PO 0819 Losartan Potassium 100 MG DAILY 11/04 1530 AC 11/07 PO 1032 Metoprolol Tartrate 12.5 MG BID 11/03 1100 AC 11/07 PO 1032 Results Last 48 Hrs of Labs/Mics: Laboratory Tests 11/07/1625: Anion Gap 13, Estimated GFR > 60, BUN/Creatinine Ratio 18.6, Total Bilirubin 1.5 H, Direct Bilirubin 0.9 H, AST 169 H, ALT 267 H, Alkaline Phosphatase 492 H , Total Protein 6.3, Albumin 3.4 L, CBC w Diff NO MAN DIFF REQ, RBC 4.08 L, MCV 87.9, MCH 29.3, RDW 15.1 H, MPV 7.5, Gran % 77.0 H, Lymphocytes % 10.1 L, Monocytes % 9.0, Eosinophils % 3.7, Basophils % 0.2, Absolute Granulocytes 6.7 H, Absolute Lymphocytes 0.9 L, Absolute Monocytes 0.8 H, Absolute Eosinophils 0.3, Absolute Basophils 0, PUBS MCHC 33.4 11/06/16 0656: Anion Gap 9, Estimated GFR > 60, BUN/Creatinine Ratio 18.8, Total Bilirubin 2.0 H, Direct Bilirubin 1.3 H, AST 166 H, ALT 242 H, Alkaline Phosphatase 474 H, Total Protein 6.0 L, Albumin 3.2 L, CBC w Diff NO MAN DIFF REQ, RBC 3.92 L, MCV 87.9, MCH 29.1, RDW 14.5, MPV 7.8, Gran % 79.3 H, Lymphocytes % 10.6 L, Monocytes % 8.4, Eosinophils % 1.7, Basophils % 0 L, Absolute Granulocytes 6.9 H, Absolute Lymphocytes 0.9 L, Absolute Monocytes 0.7 H, Absolute Eosinophils 0.1, Absolute Basophils 0, PUBS MCHC 33.2 Assessment/Plan Assessment/Plan The patient is a 66-year-old gentleman with a past medical history of paroxysmal atrial fibrillation, who presented with fevers, chills and rigors. 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 A slight troponin increase of 0.11 was noted. Troponin isoenzyme elevation: This was in the setting of significant fevers as well as rigors. An echocardiogram demonstrated no wall motion abnormality. The troponin isoenzyme elevation may be secondary to sepsis versus a type II non-ST segment elevation myocardial infarction in the setting of tachycardia, which is less likely. We will continue with overall conservative cardiac management and treatment of his underlying infection. Atrial fibrillation: Stable, the patient will continue on the beta blockade as well as full anticoagulation with Eliquis. Continue telemetry? No
--- NOTE | 2016-11-07 12:54 | PN- Infect Dx ---
Subjective Subjective: Afebrile. He feels improved though still notes a mild headache. His cough/ spasms are improved. Objective Last 24 Hrs of Vital Signs/I&O Vital Signs Date Time Temp Pulse Resp B/P B/P Pulse O2 O2 Flow FiO2 Mean Ox Delivery Rate 11/07 1034 94 Room Air Room Air 11/07 1032 150/90 11/07 1032 150/90 11/07 0719 98.2 73 18 148/100 93 Room Air 11/07 0052 150/100 11/06 2228 95 Room Air 11/06 2228 98.2 63 18 170/98 95 Room Air 11/06 2224 63 170/98 11/06 1543 97.9 68 18 140/82 92 Room Air 11/06 1422 94 Room Air Room Air Physical Exam Other Physical Findings: He appears comfortable in no acute distress Lungs are clear Heart regular rhythm with no murmur Abdomen is obese, soft, nontender with positive bowel sounds Results Last 24 Hours of Lab Results: Laboratory Tests 11/07 724 Chemistry Sodium (137 - 145 mmol/L) 140 Potassium (3.5 - 5.1 mmol/L) 4.3 Chloride (98 - 107 mmol/L) 102 Carbon Dioxide (22 - 30 mmol/L) 25 Anion Gap (5 - 16) 13 BUN (9 - 20 mg/dL) 13 Creatinine (0.7 - 1.2 mg/dL) 0.7 Estimated GFR (>60 ml/min) > 60 BUN/Creatinine Ratio (7 - 25 %) 18.6 Total Bilirubin (0.2 - 1.3 mg/dL) 1.5 H Direct Bilirubin (< 0.4 mg/dL) 0.9 H AST (17 - 59 U/L) 169 H ALT (21 - 72 U/L) 267 H Alkaline Phosphatase (< 127 U/L) 492 H Total Protein (6.3 - 8.2 g/dL) 6.3 Albumin (3.5 - 5.0 g/dL) 3.4 L Hematology CBC w Diff NO MAN DIFF REQ WBC (4.8 - 10.8 /CUMM) 8.7 RBC (4.70 - 6.10 /CUMM) 4.08 L Hgb (14.0 - 18.0 G/DL) 12.0 L Hct (42 - 52 %) 35.9 L MCV (80.0 - 94.0 FL) 87.9 MCH (27.0 - 31.0 PG) 29.3 RDW (11.5 - 14.5 %) 15.1 H Plt Count (130 - 400 /CUMM) 437 H MPV (7.4 - 10.4 FL) 7.5 Gran % (42.2 - 75.2 %) 77.0 H Lymphocytes % (20.5 - 51.1 %) 10.1 L Monocytes % (1.7 - 9.3 %) 9.0 Eosinophils % (0 - 5 %) 3.7 Basophils % (0.0 - 2.0 %) 0.2 Absolute Granulocytes (1.4 - 6.5 /CUMM) 6.7 H Absolute Lymphocytes (1.2 - 3.4 /CUMM) 0.9 L Absolute Monocytes (0.10 - 0.60 /CUMM) 0.8 H Absolute Eosinophils (0.0 - 0.7 /CUMM) 0.3 Absolute Basophils (0.0 - 0.2 /CUMM) 0 PUBS MCHC (33.0 - 37.0 G/DL) 33.4 Last 24 Hours of Garret Results: No recent cultures Assessment/Plan Impression: Improving now on Azithromycin and Atovaquone Day 3 of treatment for Babesiosis and Doxycycline Day 5 of treatment for possible coinfection with Lyme disease, with Western blot pending, though the immunoassay test was negative. Suggestion: 1. Follow-up Lyme Western blot 2. Continue Azithromycin and Atovaquone to complete a 7-10 day course of treatment 3. Continue Doxycycline to complete a 10 day course of treatment
== END 2016-11-07 12:04 | DRG 868 ==
LOC: ERH 14:54 → 1NO 19:49 → 2NB 19:49 → ERHI 19:49 → ENRESERV 20:17 → ENTRNSPT 21:29 → CMPTRNSPT 21:45 → 2NB 21:53 → 1NO 11-03 14:01 → ENPENDDIS 11-07 11:25 → 1NO 11-07 12:04
PROVIDERS: Hospitalist; Internal Medicine Endocrinology, Diabetes & Metabolism; Internal Medicine Infectious Disease; Physician Assistant Medical; Student in an Organized Health Care Education/Training Program; ADMIT Internal Medicine
DX: B60.0 Babesiosis (principal); I24.8 Other forms of acute ischemic heart disease; I48.0 Paroxysmal atrial fibrillation; A69.20 Lyme disease, unspecified; R74.0 Nonspecific elevation of levels of transaminase and lactic acid dehydrogenase [LDH]; I10 Essential (primary) hypertension; E78.5 Hyperlipidemia, unspecified; G47.33 Obstructive sleep apnea (adult) (pediatric); I25.10 Atherosclerotic heart disease of native coronary artery without angina pectoris; F32.9 Major depressive disorder, single episode, unspecified; R63.0 Anorexia; Z79.01 Long term (current) use of anticoagulants; I45.10 Unspecified right bundle-branch block; R01.1 Cardiac murmur, unspecified
CPT/HCPCS: 1NSP; 86317; 86618; 86788; 86789; 87798; 36415; 74177; 81001; 82436; 87040; 87086; 87449; 87450; 93005; 93010; 93306; 96361; 96365; 96375; J0456; J0696; J1885; J3490; J7040